=== PATIENT | female | born 1930 | race Two or more races ===

== ENCOUNTER 2017-02-02 09:36 | Inpatient (IN) | payer MEDICARE, MEDICAID ==
[~2017-02-02] VITALS: Ht 154.9 cm; Wt 88.5 kg
[~2017-02-02 09:36] MED LIST: BLOO-129 IN; CARI350T PO; HYDR-548 PO; INSU100V10 SQ
[2017-02-02 10:00] LABS: BASOPHILS % (AUTO) 0.5 % (0.0-2.0); EOSINOPHILS # (AUTO) 0.3 /CMM (0.0-0.7); EOSINOPHILS % (AUTO) 3.4 % (0.0-6.0); HEMATOCRIT 43 % (33-45); HEMOGLOBIN 13.7 g/dL (11.5-14.8); LYMPHOCYTES # (AUTO) 2.2 /CMM (0.8-4.8); LYMPHOCYTES % (AUTO) 24.9 % (20.0-44.0); MEAN CORPUSCULAR HEMOGLOBIN 28 PG (26.0-33.0); MEAN CORPUSCULAR HGB CONC 32 g/dl (31.0-36.0); MEAN CORPUSCULAR VOLUME 86 fL (82-100); MONOCYTES # (AUTO) 0.4 /CMM (0.1-1.30); MONOCYTES % (AUTO) 4.3 % (2.0-12.0); NEUTROPHILS # (AUTO) 5.9 /CMM (1.8-8.9); NEUTROPHILS % (AUTO) 66.9 % (43.0-81.0); PLATELET COUNT (AUTO) 215 /CMM (150-450); RED BLOOD CELL COUNT(AUTO) 4.97 MIL/uL (4.0-5.2); WHITE BLOOD COUNT (AUTO) 8.8 K/uL (4.3-11.0)
[2017-02-02] MEDS ORDERED: FURO20TA4 PO (10:00)
[2017-02-02] MEDS ORDERED: ASPI81TA2 PO (10:00)
[2017-02-02] MEDS ORDERED: ATOR40TA PO (10:00)
[2017-02-02] MEDS ORDERED: INSU100V7 SQ (10:00)
--- NOTE | 2017-02-02 10:00 | NUR ---
pt to ed room 03. L sided CP 05/07, non radiating x 1 week. a/a/o. side rails up. hob elevated. conencted to monitor. changed to gown. seen and evaluated by ed provider. Addendum: 02/02/17 at 1051 by RAJANLAN Amendment undone in EDM - 02/02/17 at [address] Espinoza paged [phone]
[2017-02-02 10:11] LABS: CALCIUM, SERUM 8.8 mg/dL (8.5-10.1); POTASSIUM 4.9 mmol/L (3.5-5.1)
[2017-02-02 10:15] LABS: INR 0.94 (0.87-1.13); PROTHROMBIN TIME 9.8 SECS (9.5-12.7)
[2017-02-02 10:18] LABS: TROPONIN I 0.044 ng/mL (0.00-0.056)
[2017-02-02] MEDS ORDERED: NITR0.4T6 SL (10:22)
[2017-02-02 10:23] LABS: ALBUMIN 3.2 g/dL (3.4-5.0); BILIRUBIN,DIRECT 0.1 mg/dL (0.0-0.2); BILIRUBIN,TOTAL 0.5 mg/dL (0.2-1.0); TOTAL PROTEIN, SERUM 7.3 g/dL (6.4-8.2)
--- NOTE | 2017-02-02 10:45 | NUR ---
Patient is resting comfortably in bed with eyes closed. Easily aroused. VSS
--- NOTE | 2017-02-02 10:53 | NUR ---
Dr Espinoza paged [phone]
--- NOTE | 2017-02-02 11:46 | NUR ---
Patient is resting comfortably in bed with eyes closed. Easily aroused. VSS
--- NOTE | 2017-02-02 11:53 | NUR ---
PAGED TOWER SUPERVISOR PANEL DR. OLIVER, TOWER SUPERVISOR FOR DR MENDEZ.
[2017-02-02] MEDS ORDERED: ASPIRIN 325 MG TABLET PO ONE (12:00)
[2017-02-02] MEDS ORDERED: NITROGLYCERIN PACKET 1 GM PACKET TD ONE (12:00)
[2017-02-02] MEDS ORDERED: NITROGLYCERIN PACKET 1 GM PACKET ONE (12:08)
[2017-02-02] MEDS ORDERED: ASPIRIN 325 MG TABLET ONE (12:08)
--- NOTE | 2017-02-02 12:18 | NUR ---
PATIENT ASSIGNED TO TELE 328-1 DX CHEST PAIN ADMITTING DR OLIVER
[2017-02-02] MEDS ORDERED: FUROSEMIDE 20 MG/2 ML VIAL ONE (12:25)
[2017-02-02] MEDS ORDERED: FUROSEMIDE 20 MG/2 ML VIAL IV ONE (12:30)
[2017-02-02] MEDS ORDERED: AMLODIPINE BESYLATE 5 MG TABLET ONE (12:56)
[2017-02-02] MEDS: AMLODIPINE BESYLATE 10 MG TABLET PO SCH (13:01)
--- NOTE | 2017-02-02 13:05 | NUR ---
Carly rodriguez in [place] - 02/02/17 at 1306 by ANÍBAL ACCU CHECK [id number]
[2017-02-02 14:00] VITALS: BP 187/77
--- NOTE | 2017-02-02 14:20 | NUR ---
ms rn received on bed, awake,alert,oriented x4,not in nay form of distress, respirations even and unlabored, no sob noted. came in w/ dx of chest pain/ hypertension, no sob noted, lungs are clear,abdomen soft,positive bowel sounds,denies pain at this time, will be admitted by dr. healy,all needs attended.
[2017-02-02] MEDS ORDERED: NITROGLYCERIN 0.4 MG/TAB BOTTLE SL PRN ×2 (15:30)
[2017-02-02] MEDS ORDERED: MORPHINE SULFATE INJ 2 MG/ML DISP.SYRIN IV PRN ×2 (15:30→16:00)
[2017-02-02] MEDS ORDERED: ONDANSETRON HCL/PF 4 MG/2 ML VIAL IVP PRN (15:30)
[2017-02-02] MEDS: ACETAMINOPHEN 325 MG TABLET PO PRN (15:52)
[2017-02-02] MEDS ORDERED: ASPIRIN 81 MG TAB.CHEW PO SCH (16:00)
[2017-02-02] MEDS: CARVEDILOL 6.25 MG TABLET PO SCH ×2 (16:01→21:41)
[2017-02-02] MEDS: LOSARTAN POTASSIUM 25 MG TABLET PO SCH (16:01)
[2017-02-02] MEDS: hydrALAZINE HCL 25 MG TABLET PO SCH ×2 (16:02→21:41)
[2017-02-02 16:04] VITALS: BP 144/75
--- NOTE | 2017-02-02 16:30 | NUR ---
ms cheyanne ordersmade and carried out, due meds given,tolerated well.
[2017-02-02] MEDS ORDERED: BLOOD SUGAR DIAGNOSTIC 1 EACH STRIP IN SCH (17:00)
[2017-02-02] MEDS ORDERED: INSULIN GLARGINE HUM REC ANLOG 25 UNIT SQ SCH (17:00)
--- NOTE | 2017-02-02 17:50 | NUR ---
ms edward bs - 390 -waiting for coverage order.called rx for insulin.
[2017-02-02] MEDS: BLOOD SUGAR DIAGNOSTIC 1 EACH STRIP IN SCH ×2 (18:05→21:40)
[2017-02-02] MEDS ORDERED: DEXTROSE 50%-WATER 50 ML DISP.SYRIN IV PRN (18:30)
--- NOTE | 2017-02-02 19:01 | NUR ---
ms rn on bed, all needs attended.
[2017-02-02] MEDS: INSULIN REGULAR, HUMAN 100 UNIT/ML 3 ML VIAL SQ PRN ×2 (19:16→21:46)
--- NOTE | 2017-02-02 19:30 | NUR ---
POULTRY HATCHERY MAN NOTE PATIENT AWAKE IN BED. NO RESPIRATORY DISTRESS OR CHEST PAIN AT THIS TIME. IV SITE INTACT, WITH NO REDNESS OR SWELLING NOTED AT SITE. BED LOCKED AND IN LOWEST POSITION. SIDE RAILS UP, CALL LIGHT WITHIN REACH. WILL CONTINUE TO MONITOR.
[2017-02-02 20:11] VITALS: BP 143/66
[2017-02-02] MEDS: ATORVASTATIN 40 MG TABLET PO SCH (21:39)
[2017-02-02] MEDS: INSULIN DETEMIR 100 UNIT/ML CARTRIDGE SQ SCH (21:45)
--- NOTE | 2017-02-02 21:59 | NUR ---
MOTOR VEHICLE LICENCE EXAMINER NOTE PATIENT IS TELE SB 53 AT THIS TIME. BLOOD SUGAR 360. 10 UNITS OF SLIDING SCALE INSULIN GIVEN, ALONG WITH LEVEMIR 25 UNITS. WILL ENDORSE TO VERONIKA MCINTOSH, FOR MIRELLA.
--- NOTE | 2017-02-02 22:19 | NUR ---
MANAGER INTERMEDIATE OPENING NOTES RECEIVED REPORT FROM NOAH MCINTOSH PATIENT IN BED IN STABLE CONDITION, IV SITE INTACT WITH S/S OF INFILTRATION. NO S/S OF DISTRESS NO SOB, NO CHEST PAIN. NO S/S PAIN, SAFE FREE ENVIRONMENT PROVIDED FREE OF CLUTTERS, WILL CONTINUE TO MONITOR, ON LOW BED TO ENSURE SAFETY, CALL LIGHT WITHIN REACH.
[2017-02-03] VITALS: BP_SYST 117; BP_SYST 133; BP_SYST 151; BP_DIAS 57; BP_DIAS 59; BP_DIAS 67
[2017-02-03 01:00] VITALS: BP 133/59
[2017-02-03 04:00] VITALS: BP_SYST 117; BP_SYST 133; BP_DIAS 57; BP_DIAS 59
[2017-02-03] MEDS: BLOOD SUGAR DIAGNOSTIC 1 EACH STRIP IN SCH ×4 (05:21→21:52)
[2017-02-03] MEDS: hydrALAZINE HCL 25 MG TABLET PO SCH ×3 (05:22→22:09)
[2017-02-03] MEDS: INSULIN REGULAR, HUMAN 100 UNIT/ML 3 ML VIAL SQ PRN ×4 (05:26→22:11)
--- NOTE | 2017-02-03 06:23 | NUR ---
SUPERVISOR SEWING DEPARTMENT CLOSING NOTES PATIENT COMFORTABLY ASLEEP AND EASILY AWAKEN, NO S/S OF HYPO/HYPERGLYCEMIA. IV SITE NO S/S OF INFILTRATED, PATIENT DENIES PAIN AT THIS TIME. 0/10 RESPIRATIONS EVEN AND UNLABORED. NO S/S OF ACUTE DISTRESS, NO SOB, NO COUGH, NO CONGESTION, SKIN WARM AND DRY TO TOUCH, AFEBRILE, ALL NURSING CARE NEEDS PROVIDED AND RENDERED, NEEDS ATTENDED AND ANTICIPATED, KEPT CLEAN AND DRY AND COMFORTABLE, BLADDER NOT DISTENDED, GOOD SKIN CARE PROVIDED. ABDOMEN SOFT AND NON TENDER. NO C/O OF CONSTIPATION. ALL DUE MEDS WAS GIVEN TOLERATED. FREQUENT VISUAL CHECK DONE FOR SAFETY EVERY 2 HOURS. SAFE HAZARD FREE ENVIRONMENT PROVIDED. CALL LIGHT WITHIN EASY TO REACH, ON LOW BED AT ALL TIMES TO ENSURE SAFETY, WILL ENDORSE TO THE NEXT SHIFT CONTINUE PLAN OF CARE. ATTACH TO TELE MONITOR. SHOWING SINUS BRADYCARDIA 59'S MD AWARE.
[2017-02-03 06:35] LABS: BASOPHILS % (AUTO) 0.5 % (0.0-2.0); EOSINOPHILS # (AUTO) 0.3 /CMM (0.0-0.7); EOSINOPHILS % (AUTO) 3.4 % (0.0-6.0); HEMATOCRIT 37 % (33-45); HEMOGLOBIN 12.4 g/dL (11.5-14.8); LYMPHOCYTES # (AUTO) 2.3 /CMM (0.8-4.8); LYMPHOCYTES % (AUTO) 26.7 % (20.0-44.0); MEAN CORPUSCULAR HEMOGLOBIN 29 PG (26.0-33.0); MEAN CORPUSCULAR HGB CONC 33 g/dl (31.0-36.0); MEAN CORPUSCULAR VOLUME 86 fL (82-100); MONOCYTES # (AUTO) 0.6 /CMM (0.1-1.30); NEUTROPHILS # (AUTO) 5.5 /CMM (1.8-8.9); NEUTROPHILS % (AUTO) 62.4 % (43.0-81.0); PLATELET COUNT (AUTO) 213 /CMM (150-450); RDW COEFFICIENT OF VARIATION 13.6 (11.5-15.0); RED BLOOD CELL COUNT(AUTO) 4.33 MIL/uL (4.0-5.2); WHITE BLOOD COUNT (AUTO) 8.8 K/uL (4.3-11.0)
[2017-02-03 06:51] LABS: CALCIUM, SERUM 8.5 mg/dL (8.5-10.1); CREATININE 1.1 mg/dL (0.6-1.3); MAGNESIUM 1.8 mg/dL (1.8-2.4); PHOSPHORUS 4.7 mg/dL (2.5-4.9)
[2017-02-03 07:04] VITALS: BP 136/60
--- NOTE | 2017-02-03 07:23 | NUR ---
RN AM NOTES RECEIVED PATIENT IN STABLE CONDITION, ALERT/ORIENTED X4, ASLEEP, BUT EASILY AROUSABLE. SLIGHT CONGESTION, WILL FOLLOW UP ON MEDICATIONS AND ADMINISTER ORDERED. NO COMPLAINTS OF PAIN OR SIGNS/SYMPTOMS OF DISTRESS. WILL CONTINUE TO MONITOR
[2017-02-03] MEDS: ASPIRIN 81 MG TAB.CHEW PO SCH (08:05)
[2017-02-03] MEDS: LOSARTAN POTASSIUM 25 MG TABLET PO SCH (08:06)
[2017-02-03] MEDS: AMLODIPINE BESYLATE 10 MG TABLET PO SCH (08:06)
[2017-02-03] MEDS: CARVEDILOL 6.25 MG TABLET PO SCH ×2 (08:07→21:44)
[2017-02-03] MEDS: INSULIN DETEMIR 100 UNIT/ML CARTRIDGE SQ SCH ×2 (08:11→21:51)
[2017-02-03] MEDS ORDERED: GUAIFENESIN/D-METHORPHAN HB 5 ML UDC PO PRN (09:30)
--- NOTE | 2017-02-03 10:36 | NUR ---
PT EVALUATED PATIENT AND IS RECOMMENDING CAREGIVER AND AT HOME PT IF SHE IS TO D/C TOMORROW. PT OBSERVED THAT SHE CAN ONLY AMBULATE 100 FT AND THAT SHE NEEDS ASSISTANCE IN ADDITION TO HER WALKER. WILL FORWARD TO CASE MANAGEMENT AND CONTINUE TO MONITOR.
--- NOTE | 2017-02-03 11:00 | NUR ---
PT EVALUATED PATIENT, PT AMBULATED 100 FEET ASSISTED WITH WALKER. PT RECOMMENDS ACTIVITY WITH ASSIST, EVEN WITH WALKER. SUGGESTS THAT PATIENT HAS A CAREGIVER AND AT HOME PT, PATIENT LIVES ALONE WITH HER DAUGHTER AND INDUSTRIAL TRACTOR DRIVER STOPPING BY TO HELP AND SON-IN-LAW HELPING WHEN DAUGHTER IS NOT AVAILABLE. FORWARDED TO CASE MANAGEMENT. WILL CONTINUE TO MONITOR.
--- NOTE | 2017-02-03 15:24 | NUR ---
NO COMPLAINTS OF CHEST PAIN OR SOB. PATIENT IN BED RESTING QUIETLY, BUT EASILY AROUSABLE. WILL CONTINUE TO MONITOR.
--- NOTE | 2017-02-03 15:48 | NUR ---
NO COMPLAINTS OF COUGH SINCE THIS AM DOSE OF ROBITUSSIN. COUGH PRODUCTIVE WITH WHITE, CLEAR MUCUS. LUNGS AND THROAT CLEAR, WITH NO SIGNS/SYMPTOMS OF IRRITATION. NO DISTRESS NOTED. WILL CONTINUE TO MONITOR.
[2017-02-03 16:00] VITALS: BP 111/56
--- NOTE | 2017-02-03 18:16 | NUR ---
RN PM NOTES PATIENT RESTING IN BED. ATE MOST OF DINNER, BUT SAYS SHE JUST FELT MORE FULL THAN USUAL. DENIES PAIN, SOB OR DISCOMFORT. NO COMPLAINTS OF CHEST PAIN OR HEART PALPITATIONS. FLUSHED PIV EACH PORT WITH 10 ML NS SALINE FLUSH FOR MAINTENANCE. PATIENT TOLERATED WELL. WILL ENDORSE TO NEXT SHIFT.
--- NOTE | 2017-02-03 19:30 | NUR ---
RN NOTES: RECEIVED PATIENT LYING ON BED,SHE CLAIMED SHE JUST HAD BM USING BED SIDE COMMODE;IV CANNULA INTACT LEFT HAND G#18 HEPLOCK,NO SIGN OF SOB , ON ROOM AIR,FALL, SAFETY AND ASPIRATION PRECAUTION OBSERVE, CALL LIGHT WITHIN REACH,BED LOW AND LOCKED.MENTIONED SHE HAD A SLIGHT HEADACHE,NON PHARMACOLOGIC INTERVENTION RENDERED.KEPT ON COMFORTABLE POSITION.
[2017-02-03] MEDS: ACETAMINOPHEN 325 MG TABLET PO PRN (19:49)
--- NOTE | 2017-02-03 19:53 | NUR ---
RN NOTES: PATIENT COMPLAINED OF HEADACHE UPON ENDORSEMENT 06/07 AND REQUEST FOR TYLENOL,GIVEN AT 1950,KEPT ON COMFORTABLE POSITION AND NON PHARMACOLOGIC INTERVENTION RENDERED, DIM LIGHT AND BACK RUB.
[2017-02-03 20:00] VITALS: BP 139/61
[2017-02-03] MEDS: ATORVASTATIN 40 MG TABLET PO SCH (21:54)
--- NOTE | 2017-02-03 22:00 | NUR ---
RN NOTES: BLOOD SUGAR-185, DUE INSULIN GIVEN PER SCALE,LEVEMIR SCHEDULED GIVEN, OFFERED SNACKS,BP-140/65 WI-62(MANUAL), DUE MEDICATION GIVEN, WILL CONTINUE TO MONITOR HYPER AND HYPOGLYCEMIA SIGNS AND SYMPTOMS.
--- NOTE | 2017-02-03 22:00 | NUR ---
RN NOTES: LUNESTA NOT GIVEN NOT AVAILABLE IN [facility].
--- NOTE | 2017-02-04 02:37 | NUR ---
RN NOTES: HAD BM USING BED SIDE COMMODE,SPONGE BATH RENDERED, CLEAN AND CHANGE,PATIENT CLAIMED SHE FEEL COMFORTABLE.CALL LIGHT WITH IN REACH.
[2017-02-04] MEDS: hydrALAZINE HCL 25 MG TABLET PO SCH ×2 (05:00→12:35)
--- NOTE | 2017-02-04 05:20 | NUR ---
RN NOTES: 5AM DOSE OF APRESOLINE NOT GIVEN, BP-114/55 KY-54,PATIENT ASYMPTOMATIC, NO COMPLAINTS OF DIZZINESS OR CHEST DISCOMFORT, LYING COMFORTABLY IN BED,ALERT AND COHERENT.CALL LIGHT WITHIN REACH.
[2017-02-04] MEDS: BLOOD SUGAR DIAGNOSTIC 1 EACH STRIP IN SCH ×2 (06:03→12:25)
[2017-02-04] MEDS: INSULIN REGULAR, HUMAN 100 UNIT/ML 3 ML VIAL SQ PRN ×2 (06:05→12:34)
--- NOTE | 2017-02-04 06:06 | NUR ---
RN NOTES: BLOOD SUGAR CHECK-132, INSULIN GIVEN PER SCALE,ASLEEP AT SHORT INTERVALS, WILL CONTINUE TO MONITOR FOR SIGN OF HYPER/HYPOGLYCEMIA.CALL LIGHT WITHIN REACH.
--- NOTE | 2017-02-04 06:38 | NUR ---
RN NOTES: ABLE TO SLEEP AND REST IN THE NIGHT, NEEDS ATTENDED, NO COMPLAINTS OF PAIN,NOT ANY SIGN OF RESPIRATORY DISTRESS NOTED,BED LOW AND LOCKED, CALL LIGHT WITHIN REACH.ENDORSED TO MORNING SHIFT FOR CONTINUITY OF CARE.
[2017-02-04 08:00] VITALS: BP 127/60
--- NOTE | 2017-02-04 08:16 | NUR ---
RN AM NOTES RECEIVED PATIENT IN BED, EASILY AROUSABLE, ALERT /ORIENTED X4. NO C/O PAIN, BUT STILL WITH GENERALIZED WEAKNESS. BLOOD SUGAR 132 WITH 2 UNITS AT 0600, NO OTHER COVERAGE GIVEN. AWAITING BREAKFAST. WILL CONTINUE TO MONITOR.
[2017-02-04] MEDS: ASPIRIN 81 MG TAB.CHEW PO SCH (08:56)
[2017-02-04] MEDS: CARVEDILOL 6.25 MG TABLET PO SCH (08:57)
[2017-02-04] MEDS: AMLODIPINE BESYLATE 10 MG TABLET PO SCH (08:57)
[2017-02-04] MEDS: LOSARTAN POTASSIUM 25 MG TABLET PO SCH (08:58)
[2017-02-04] MEDS: INSULIN DETEMIR 100 UNIT/ML CARTRIDGE SQ SCH (09:04)
[2017-02-04 12:35] VITALS: BP 127/60
--- NOTE | 2017-02-04 12:40 | NUR ---
BLOOD YXHKI=093 TAKEN POSTPARANDIAL, COVERED WITH 10 UNITS OF REGULAR INSULIN PER SLIDING SCALE. AWARE. PT. CLEARED TO DISCHARGE.
--- NOTE | 2017-02-04 15:03 | NUR ---
PATIENT AT BEDSIDE WAITING FOR SON-IN-LAW TO PICK HER UP. COMING FROM [place]. PATIENT DRESSED AND READY WITH PERSONAL BELONGINGS, AND DISCHARGE PAPERWORK, INCLUDING PRESCRIPTION. RX FAXED TO [facility] AND HAS BEEN FILLED PER PHARMACY.
--- NOTE | 2017-02-04 15:50 | NUR ---
CONTRACTOR BUYER NOTES PATIENT LEFT FACILITY IN WHEELCHAIR ACCOMPANIED BY SON AND MARKETING ANALYTICS SPECIALIST TO PRIVATE CAR. IN STABLE CONDITION. DISCHARGE PACKET AND PAPERWORK GIVEN TO PATIENT. RX FILLED AT [facility] REQUESTED BY PATIENT. ALL PERSONAL BELONGINGS GIVEN TO PATIENT. PATIENT LEFT FACILITY SAFELY.
== END 2017-02-04 15:45 | disposition home or self-care (01) | DRG 305 ==
LOC: ER 09:37 → TELE 12:28 → MED 02-03 11:22
PROVIDERS: ADMIT Internal Medicine; ATTEND Internal Medicine
DX: I16.0 Hypertensive urgency (principal); I25.110 Atherosclerotic heart disease of native coronary artery with unstable angina pectoris; I50.32 Chronic diastolic (congestive) heart failure; I11.0 Hypertensive heart disease with heart failure; E66.9 Obesity, unspecified; E78.5 Hyperlipidemia, unspecified; E11.9 Type 2 diabetes mellitus without complications; Z87.891 Personal history of nicotine dependence; Z91.19 Patient's noncompliance with other medical treatment and regimen
CPT/HCPCS: 36415; 71010-TC; 80048-TC; 80076-TC; 82962-TC; 83735-TC; 83880; 84100-TC; 84484-TC; 85025-TC; 85730-TC; 87081-TC; 93307-TC; 97001-TC; A4606; J1815; J1940; Z7610

== ENCOUNTER 2017-05-27 14:24 | Emergency (ER) | payer MEDICARE, MEDICAID ==
[~2017-05-27] VITALS: Ht 152.4 cm; Wt 98.4 kg
[~2017-05-27 14:24] MED LIST changes: +ASPI81TA2 PO; +ATOR40TA PO; -CARI350T PO; +FURO20TA4 PO; -HYDR-548 PO; -INSU100V10 SQ; +INSU100V7 SQ; +NITR0.4T6 SL
--- NOTE | 2017-05-27 14:24 | NUR ---
UPPER BACK AND CHEST PAIN SINCE YESTERDAY. NAD NOTED. PT AAO X4, AMB WITH STEADY GAIT. RR EVEN AND UNLABORED. EKJARRELL AT BEDSIDE FOR EVAL. PT PLACED ON MONITOR.
[2017-05-27 14:53] LABS: BASOPHILS # (AUTO) 0.1 /CMM (0.0-0.2); BASOPHILS % (AUTO) 1.1 % (0.0-2.0); EOSINOPHILS # (AUTO) 0.4 /CMM (0.0-0.7); EOSINOPHILS % (AUTO) 4.8 % (0.0-6.0); HEMATOCRIT 37 % (33-45); HEMOGLOBIN 12.1 g/dL (11.5-14.8); LYMPHOCYTES % (AUTO) 21.8 % (20.0-44.0); MEAN CORPUSCULAR HEMOGLOBIN 29 PG (26.0-33.0); MEAN CORPUSCULAR HGB CONC 33 g/dl (31.0-36.0); MEAN CORPUSCULAR VOLUME 88 fL (82-100); MONOCYTES # (AUTO) 0.5 /CMM (0.1-1.30); MONOCYTES % (AUTO) 5.7 % (2.0-12.0); NEUTROPHILS % (AUTO) 66.6 % (43.0-81.0); PLATELET COUNT (AUTO) 257 /CMM (150-450); RDW COEFFICIENT OF VARIATION 13.9 (11.5-15.0); RED BLOOD CELL COUNT(AUTO) 4.17 MIL/uL (4.0-5.2)
[2017-05-27] MEDS ORDERED: KETOROLAC TROMETHAMINE INJ 30 MG/ML VIAL IV ONE (15:00)
[2017-05-27] MEDS ORDERED: KETOROLAC TROMETHAMINE 15 MG/ML VIAL ONE (15:02)
[2017-05-27 15:03] LABS: CALCIUM, SERUM 8.2 mg/dL (8.5-10.1); CARBON DIOXIDE 33 mmol/L (21-32); CHLORIDE 106 mmol/L (98-107); CREATININE 1.3 mg/dL (0.6-1.3); GLUCOSE 126 mg/dL (74-106); POTASSIUM 4.6 mmol/L (3.5-5.1); SODIUM SERUM 143 mmol/L (136-145); UREA NITROGEN, BLOOD 27 mg/dL (7-18)
[2017-05-27 15:06] LABS: INR 0.95 (0.87-1.13); PROTHROMBIN TIME 9.9 SECS (9.5-12.7)
[2017-05-27 15:12] LABS: TROPONIN I 0.036 ng/mL (0.00-0.056)
[2017-05-27 15:43] VITALS: BP 134/68
== END 2017-05-27 15:44 | disposition home or self-care (01) ==
LOC: ER 14:27
DX: M54.6 Pain in thoracic spine (principal); E11.9 Type 2 diabetes mellitus without complications; E78.00 Pure hypercholesterolemia, unspecified; G89.29 Other chronic pain; I11.0 Hypertensive heart disease with heart failure; I25.2 Old myocardial infarction; I50.9 Heart failure, unspecified; J44.9 Chronic obstructive pulmonary disease, unspecified; Z79.4 Long term (current) use of insulin; Z79.82 Long term (current) use of aspirin; Z99.81 Dependence on supplemental oxygen; Z88.5 Allergy status to narcotic agent; Z88.1 Allergy status to other antibiotic agents
CPT/HCPCS: 36415; 71010; 80048; 84484; 85025; 85730; 93005; 96374; 99285; A4606 ×2; J1885; Z7610

== ENCOUNTER 2017-06-12 18:29 | Inpatient (IN) | payer MEDICARE, MEDICAID ==
[2017-06-12] MEDS ORDERED: FUROSEMIDE 20 MG/2 ML VIAL ONE (20:08)
[2017-06-12] MEDS ORDERED: INSU100V7 SQ (20:27)
[2017-06-12] MEDS ORDERED: LOSA25TA13 PO (20:27)
[2017-06-12] MEDS ORDERED: FAMO20TA8 PO (20:27)
[2017-06-12] MEDS ORDERED: LINA5TAB PO (20:27)
[2017-06-12] MEDS ORDERED: AMLO10TA2 PO (20:28)
[2017-06-12] MEDS ORDERED: FOLI1TAB16 PO (20:28)
[2017-06-12] MEDS ORDERED: HYDR-548 PO (20:28)
[2017-06-12] MEDS ORDERED: FUROSEMIDE 40 MG/4 ML VIAL IV ONE (20:30)
[2017-06-12] MEDS ORDERED: ACETAMINOPHEN 325 MG TABLET ONE ×2 (21:14→22:21)
[2017-06-12] MEDS ORDERED: ACETAMINOPHEN 650 MG/20.3 ML UDC NG ONE (21:30)
[2017-06-12] MEDS ORDERED: DEXTROSE 50%-WATER 50 ML DISP.SYRIN IV PRN (21:30)
[2017-06-12] MEDS ORDERED: NITROGLYCERIN PACKET 1 GM PACKET ONE (22:21)
[2017-06-12] MEDS ORDERED: ENOXAPARIN SODIUM 40 MG/0.4 ML DISP.SYRIN SQ ONE (22:21)
[2017-06-12] MEDS ORDERED: ACETAMINOPHEN 325 MG TABLET PO PRN (22:30)
[2017-06-12] MEDS ORDERED: ENOXAPARIN SODIUM 40 MG/0.4 ML DISP.SYRIN SQ SCH (22:30)
[2017-06-12] MEDS: BLOOD SUGAR DIAGNOSTIC 1 EACH STRIP IN SCH (22:33)
[2017-06-12] MEDS: NITROGLYCERIN PACKET 1 GM PACKET TOP SCH (22:40)
[2017-06-13] MEDS ORDERED: NITROGLYCERIN PACKET 1 GM PACKET ONE (06:30)
[2017-06-13] MEDS: NITROGLYCERIN PACKET 1 GM PACKET TOP SCH (06:39)
[2017-06-13] MEDS: BLOOD SUGAR DIAGNOSTIC 1 EACH STRIP IN SCH ×4 (06:50→21:01)
[2017-06-13] MEDS ORDERED: FUROSEMIDE 40 MG/4 ML VIAL IV SCH (09:00)
[2017-06-13] MEDS: ASPIRIN 81 MG TAB.CHEW PO SCH (09:04)
[2017-06-13] MEDS: PANTOPRAZOLE 40 MG TABLET.DR PO SCH (09:04)
[2017-06-13] MEDS: HYDROCODONE/APAP 10/325MG 1 EA TABLET PO PRN ×3 (09:18→23:30)
[2017-06-13] MEDS ORDERED: NITROGLYCERIN 30 GM TUBE TP SCH (12:00)
[2017-06-13] MEDS: INSULIN REGULAR, HUMAN 100 UNIT/ML 3 ML VIAL SQ PRN ×3 (12:18→21:17)
[2017-06-13] MEDS: AMLODIPINE BESYLATE 5 MG TABLET PO SCH (12:54)
[2017-06-13] MEDS: ONDANSETRON HCL/PF 4 MG/2 ML VIAL IV PRN (17:26)
[2017-06-13] MEDS ORDERED: diphenhydrAMINE HCL ELIX 25 MG/10 ML UDC PO PRN (18:30)
[2017-06-13] MEDS: ENOXAPARIN SODIUM 40 MG/0.4 ML DISP.SYRIN SQ SCH (20:55)
[2017-06-13] MEDS: HYDROCORTISONE 1% CREAM 28.35 GM TUBE TP SCH (20:55)
[2017-06-14] MEDS: BLOOD SUGAR DIAGNOSTIC 1 EACH STRIP IN SCH ×4 (06:33→21:22)
[2017-06-14] MEDS: INSULIN REGULAR, HUMAN 100 UNIT/ML 3 ML VIAL SQ PRN ×4 (06:34→21:28)
[2017-06-14] MEDS: ASPIRIN 81 MG TAB.CHEW PO SCH (08:28)
[2017-06-14] MEDS: FUROSEMIDE 20 MG TABLET PO SCH (08:28)
[2017-06-14] MEDS: PANTOPRAZOLE 40 MG TABLET.DR PO SCH (08:28)
[2017-06-14] MEDS: HYDROCORTISONE 1% CREAM 28.35 GM TUBE TP SCH ×2 (08:29→17:23)
[2017-06-14] MEDS: AMLODIPINE BESYLATE 5 MG TABLET PO SCH (08:29)
[2017-06-14] MEDS: HYDROCODONE/APAP 10/325MG 1 EA TABLET PO PRN ×2 (09:01→21:35)
[2017-06-14] MEDS: ONDANSETRON HCL/PF 4 MG/2 ML VIAL IV PRN (11:08)
[2017-06-14] MEDS: ENOXAPARIN SODIUM 40 MG/0.4 ML DISP.SYRIN SQ SCH (21:23)
[2017-06-15] MEDS: HYDROCODONE/APAP 10/325MG 1 EA TABLET PO PRN ×2 (06:02→12:07)
[2017-06-15] MEDS: BLOOD SUGAR DIAGNOSTIC 1 EACH STRIP IN SCH ×2 (06:02→12:05)
[2017-06-15] MEDS: INSULIN REGULAR, HUMAN 100 UNIT/ML 3 ML VIAL SQ PRN ×2 (06:44→12:07)
[2017-06-15] MEDS: FUROSEMIDE 20 MG TABLET PO SCH (08:09)
[2017-06-15] MEDS: PANTOPRAZOLE 40 MG TABLET.DR PO SCH (08:09)
[2017-06-15] MEDS: ASPIRIN 81 MG TAB.CHEW PO SCH (08:10)
[2017-06-15] MEDS: HYDROCORTISONE 1% CREAM 28.35 GM TUBE TP SCH (08:10)
[2017-06-15] MEDS: AMLODIPINE BESYLATE 5 MG TABLET PO SCH (08:10)
== END 2017-06-15 14:00 | disposition home or self-care (01) | DRG 291 ==
DX: I13.0 Hypertensive heart and chronic kidney disease with heart failure and stage 1 through stage 4 chronic kidney disease, or unspecified chronic kidney disease (principal); I50.43 Acute on chronic combined systolic (congestive) and diastolic (congestive) heart failure; E11.22 Type 2 diabetes mellitus with diabetic chronic kidney disease; N39.0 Urinary tract infection, site not specified; E66.01 Morbid (severe) obesity due to excess calories; B96.1 Klebsiella pneumoniae [K. pneumoniae] as the cause of diseases classified elsewhere; E11.9 Type 2 diabetes mellitus without complications; J98.11 Atelectasis; G89.29 Other chronic pain; I25.10 Atherosclerotic heart disease of native coronary artery without angina pectoris; Z68.34 Body mass index [BMI] 34.0-34.9, adult; Z87.891 Personal history of nicotine dependence; R42 Dizziness and giddiness; R07.89 Other chest pain; I35.0 Nonrheumatic aortic (valve) stenosis; M54.5 Low back pain; N18.2 Chronic kidney disease, stage 2 (mild)

== ENCOUNTER 2017-09-30 00:35 | Inpatient (IN) | payer MEDICARE, MEDICAID ==
[~2017-09-30] VITALS: Ht 154.9 cm; Wt 101.6 kg
[~2017-09-30 00:35] MED LIST changes: +AMLO10TA2 PO; +ASPI-1169 PO; -ASPI81TA2 PO; -ATOR40TA PO; +FAMO20TA8 PO; +FOLI1TAB16 PO; +HYDR-548 PO; +LINA5TAB PO; +LOSA25TA13 PO; +NITR0.4T48 SL; -NITR0.4T6 SL
--- NOTE | 2017-09-30 00:37 | NUR ---
PT TO ER BED 6 VIA WC, PT BIBSELF C/O CP RADIATING TO THE LEFT ARM WITH SOB X 1 HOUR. HX OF HEART ATTACK. PT PLACED IN GOWN AND ON DIRECTOR [place]. VSS/RESP EVEN UNLABORED/NAD NOTED/SKIN WARM AND DRY/DENIES N-V-D/AOX4. MD AT BEDSIDE. EMT AT BEDSIDE TO OBTAIN EKG.
[2017-09-30] MEDS ORDERED: NITROGLYCERIN 0.4 MG/TAB BOTTLE ONE (00:50)
[2017-09-30] MEDS ORDERED: ASPIRIN 325 MG TABLET ONE (00:51)
[2017-09-30] MEDS ORDERED: NITROGLYCERIN 0.4 MG/TAB BOTTLE SL ONE (01:00)
[2017-09-30] MEDS ORDERED: ASPIRIN 325 MG TABLET PO ONE (01:00)
--- NOTE | 2017-09-30 01:05 | NUR ---
18G IV TO R FA USING ASEPTIC TECH, BLOOD OBTAINED AND HANDED OVER TO THE LAB AT THE BEDSIDE. IV FLUSHES EASILY WITH NS.
[2017-09-30] MEDS ORDERED: CALC-838 PO (01:08)
[2017-09-30] MEDS ORDERED: LOPE2CAP PO (01:08)
--- NOTE | 2017-09-30 01:12 | NUR ---
XRAY AT BEDSIDE.
[2017-09-30 01:13] LABS: BASOPHILS # (AUTO) 0.1 /CMM (0.0-0.2); BASOPHILS % (AUTO) 0.5 % (0.0-2.0); EOSINOPHILS # (AUTO) 0.4 /CMM (0.0-0.7); EOSINOPHILS % (AUTO) 3.5 % (0.0-6.0); HEMATOCRIT 37 % (33-45); HEMOGLOBIN 11.8 g/dL (11.5-14.8); LYMPHOCYTES # (AUTO) 2.6 /CMM (0.8-4.8); LYMPHOCYTES % (AUTO) 24.7 % (20.0-44.0); MEAN CORPUSCULAR HEMOGLOBIN 28 PG (26.0-33.0); MEAN CORPUSCULAR HGB CONC 32 g/dl (31.0-36.0); MEAN CORPUSCULAR VOLUME 86 fL (82-100); MONOCYTES # (AUTO) 0.6 /CMM (0.1-1.30); MONOCYTES % (AUTO) 5.6 % (2.0-12.0); NEUTROPHILS # (AUTO) 6.9 /CMM (1.8-8.9); NEUTROPHILS % (AUTO) 65.7 % (43.0-81.0); PLATELET COUNT (AUTO) 267 /CMM (150-450); RED BLOOD CELL COUNT(AUTO) 4.27 MIL/uL (4.0-5.2); WHITE BLOOD COUNT (AUTO) 10.5 K/uL (4.3-11.0)
[2017-09-30 01:21] LABS: CALCIUM, SERUM 9.1 mg/dL (8.5-10.1); CARBON DIOXIDE 31 mmol/L (21-32); CHLORIDE 108 mmol/L (98-107); CREATININE 1.2 mg/dL (0.6-1.3); GLUCOSE 137 mg/dL (74-106); POTASSIUM 4.5 mmol/L (3.5-5.1); SODIUM SERUM 145 mmol/L (136-145); UREA NITROGEN, BLOOD 27 mg/dL (7-18)
[2017-09-30 01:24] LABS: INR 0.9 (0.87-1.13); PROTHROMBIN TIME 9.4 SECS (9.5-12.7)
[2017-09-30 01:29] LABS: TROPONIN I 0.026 ng/mL (0.00-0.056)
[2017-09-30 01:34] LABS: B-TYPE NATRIURETIC PEPTIDE 986 PG/ML (0-125)
--- NOTE | 2017-09-30 02:21 | NUR ---
PT ASSIGNED TO [facility] 308-1
--- NOTE | 2017-09-30 02:42 | NUR ---
REPORT GIVEN TO MARITZA FOR MIRELLA. PT ADMIT TO TELE 308-1.
--- NOTE | 2017-09-30 03:06 | NUR ---
SENIOR GENETIC COUNSELOR NOTES RECEIVED PT FROM [facility]IA [facility] AT 0306 ACLS PROTOCOL. A/O X 4, ATTACH TO TELE MONITOR. PT IN STABLE CONDITION, ON 2LPM VIA CA 02 SAT AT 98% NO S/S OF DISTRESS. NO COMPLAINS OF PAIN AT THIS TIME. SAFETY MEASURES ARE IN PLACE, CALL LIGHT IS IN REACH. WILL CONTINUE TO MONITOR. HEAD TO TOE SKIN ASSESSMENT IS DONE, SKIN IS INTACT.
[2017-09-30 03:10] VITALS: BP 150/59
--- NOTE | 2017-09-30 03:18 | NUR ---
PT TRANSPORTED VIA STRETCHER TO [facility] [id number] WITH RN, ACLS PROTOCOL.
[2017-09-30 03:52] VITALS: BP 150/59
[2017-09-30] MEDS ORDERED: HYDROMORPHONE 1 MG/1 ML DISP.SYRIN IV PRN (04:00)
[2017-09-30] MEDS ORDERED: ONDANSETRON HCL/PF 4 MG/2 ML VIAL IV PRN (04:00)
[2017-09-30] MEDS ORDERED: DEXTROSE 50%-WATER 50 ML DISP.SYRIN IV PRN (04:00)
[2017-09-30] MEDS ORDERED: NITROGLYCERIN PACKET 1 GM PACKET ONE (05:45)
[2017-09-30] MEDS ORDERED: ENOXAPARIN SODIUM 40 MG/0.4 ML DISP.SYRIN SQ ONE (05:46)
[2017-09-30] MEDS ORDERED: ENOXAPARIN SODIUM 40 MG/0.4 ML DISP.SYRIN SQ SCH (06:00)
[2017-09-30] MEDS ORDERED: NITROGLYCERIN PACKET 1 GM PACKET TOP SCH (06:00)
[2017-09-30] MEDS: BLOOD SUGAR DIAGNOSTIC 1 EACH STRIP IN SCH ×4 (06:07→21:39)
--- NOTE | 2017-09-30 06:18 | NUR ---
MANAGER USER EXPERIENCE CLOSING NOTES IN BED ASLEEP AND EASILY AWAKEN, HOB ELEVATED, ON 2LPM VIA NC 02 SAT 97% RESPIRATIONS EVEN AND UNLABORED. NO COMPLAINS OF CHEST PAIN, AFEBRILE, IN STABLE CONDITION. NOT IN S/S DISTRESS. ALL NURSING CARE RENDERED. NEEDS ATTENDED AND ANTICIPATED, KEPT CLEAN AND DRY AND COMFORTABLE, NO COMPLAINS OF PAIN AT THIS TIME. GOOD SKIN CARE PROVIDED. FREQUENT VISUAL CHECK DONE FOR SAFETY EVERY 2 HOURS. ON LOW BED AT ALL TIMES TO ENSURE SAFETY. SAFE HAZARD FREE ENVIRONMENT PROVIDED. CALL LIGHT WITHIN EASY TO REACH. WILL ENDORSE NEXT SHIFT CONTINUITY OF CARE. ATTACH TO TELE MONITOR, SR 67'S.
[2017-09-30] MEDS ORDERED: FENTANYL PF 100MCG/2ML AMPUL IV PRN (07:00)
[2017-09-30] MEDS: INSULIN REGULAR, HUMAN 100 UNIT/ML 3 ML VIAL SQ PRN ×4 (07:02→22:09)
--- NOTE | 2017-09-30 07:05 | NUR ---
DICTAPHONE TECHNICIAN OPENING NOTES RECEIVED PT FROM NIGHTSHIFT NURSE IN STABLE CONDITION. PT IS A/O X4/ NO SOB OR SIGNS OF DISTRESS NOTED. BREATHING IS EVEN AND UNLABORED. PT IS ON 2L VIA NC AND SATING WELL. SHE DENIES ANY CHEST PAIN AT THIS TIME. PT IS SR ON THE TELE MONITOR WITH A HR OF 63. IV NOTED ON RIGHT FA 18G HL. IV IS PATENT TO NS FLUSH AND INTACT. NO REDNESS OR SIGNS OF INFILTRATION NOTED. BED IN LOW LOCKED POSITION, SIDE RAILS UP X2, CALL LIGHT WITHIN REACH. WILL CONTINUE TO MONITOR.
[2017-09-30] MEDS ORDERED: NITROGLYCERIN 0.4 MG/TAB BOTTLE SL PRN (07:30)
[2017-09-30 07:35] LABS: BASOPHILS % (AUTO) 0.4 % (0.0-2.0); EOSINOPHILS # (AUTO) 0.2 /CMM (0.0-0.7); EOSINOPHILS % (AUTO) 2.3 % (0.0-6.0); HEMATOCRIT 38 % (33-45); HEMOGLOBIN 12.1 g/dL (11.5-14.8); LYMPHOCYTES # (AUTO) 1.7 /CMM (0.8-4.8); LYMPHOCYTES % (AUTO) 17.5 % (20.0-44.0); MEAN CORPUSCULAR HEMOGLOBIN 28 PG (26.0-33.0); MEAN CORPUSCULAR HGB CONC 32 g/dl (31.0-36.0); MEAN CORPUSCULAR VOLUME 88 fL (82-100); MONOCYTES # (AUTO) 0.4 /CMM (0.1-1.30); MONOCYTES % (AUTO) 4.7 % (2.0-12.0); NEUTROPHILS # (AUTO) 7.1 /CMM (1.8-8.9); NEUTROPHILS % (AUTO) 75.1 % (43.0-81.0); PLATELET COUNT (AUTO) 235 /CMM (150-450); RDW COEFFICIENT OF VARIATION 14.1 (11.5-15.0); RED BLOOD CELL COUNT(AUTO) 4.32 MIL/uL (4.0-5.2); WHITE BLOOD COUNT (AUTO) 9.4 K/uL (4.3-11.0)
[2017-09-30 07:48] LABS: CALCIUM, SERUM 8.6 mg/dL (8.5-10.1); CARBON DIOXIDE 29 mmol/L (21-32); CHLORIDE 105 mmol/L (98-107); CREATININE 1.3 mg/dL (0.6-1.3); GLUCOSE 187 mg/dL (74-106); MAGNESIUM 2.2 mg/dL (1.8-2.4); POTASSIUM 4.9 mmol/L (3.5-5.1); SODIUM SERUM 141 mmol/L (136-145); UREA NITROGEN, BLOOD 28 mg/dL (7-18)
[2017-09-30 07:55] LABS: CHOLESTEROL 228 mg/dL (<200); HDL CHOLESTEROL 46 mg/dL (40-60); LDL 144 mg/dL (0-99); TRIGLYCERIDES 150 mg/dL (30-150)
[2017-09-30 07:58] LABS: TROPONIN I 0.026 ng/mL (0.00-0.056)
[2017-09-30 08:00] VITALS: BP 147/70
[2017-09-30] MEDS ORDERED: BLOOD SUGAR DIAGNOSTIC 1 EACH STRIP IN SCH (09:00)
[2017-09-30] MEDS ORDERED: ASPIRIN 81 MG TAB.CHEW PO SCH ×2 (09:00)
[2017-09-30] MEDS: ATORVASTATIN 10 MG TABLET PO SCH (09:54)
[2017-09-30] MEDS: FUROSEMIDE 20 MG TABLET PO SCH (09:54)
[2017-09-30] MEDS: LOSARTAN POTASSIUM 25 MG TABLET PO SCH (09:55)
[2017-09-30] MEDS: AMLODIPINE BESYLATE 10 MG TABLET PO SCH (09:55)
[2017-09-30] MEDS: LINAGLIPTIN 5 MG TABLET PO SCH (09:56)
[2017-09-30] MEDS: ASPIRIN 81 MG TAB.CHEW PO SCH (09:57)
[2017-09-30] MEDS: PANTOPRAZOLE 40 MG TABLET.DR PO SCH (09:57)
[2017-09-30] MEDS: FAMOTIDINE (20 MG) 20 MG TABLET PO SCH (09:57)
[2017-09-30] MEDS: FOLIC ACID 1 MG TABLET PO SCH (09:58)
[2017-09-30] MEDS: CALCIUM CARB 600MG /VIT D 1 EACH TABLET PO SCH (09:58)
[2017-09-30] MEDS: ACETAMINOPHEN 325 MG TABLET PO PRN (10:08)
[2017-09-30] MEDS: NITROGLYCERIN 30 GM TUBE TP SCH ×2 (13:12→17:28)
[2017-09-30 16:00] VITALS: BP 115/52
--- NOTE | 2017-09-30 18:32 | NUR ---
MS RN CLOSING NOTES PT REMAINS IN STABLE CONDITION. NO COMPLAINTS OF CHEST PAIN DURING SHIFT, ALL NEEDS WERE MET AND ORDERS CARRIED OUT ACCORDINGLY. ALL DUE MEDS GIVEN. WILL ENDORSE TO NIGHTSHIFT NURSE FOR MIRELLA
[2017-09-30 20:00] VITALS: BP 133/54
--- NOTE | 2017-09-30 21:20 | NUR ---
lying in bed Hob up o2 @ 2l n/c denies of CP, Sob , Dizziness, faintness or diaphoresis. On Med Surg status. A/)x 4 18 ga S/l to RFA intact. accu check 137 given 2 units Humlin and 25 Units of Levimir Sq. Gave pt hs snack. resting comfortably at this time.
[2017-09-30] MEDS: DOXAZOSIN MESYLATE (1 MG) 1 MG TABLET PO SCH (21:47)
[2017-09-30] MEDS: INSULIN DETEMIR 100 UNIT/ML CARTRIDGE SQ SCH (21:52)
[2017-10-01] MEDS: NITROGLYCERIN 30 GM TUBE TP SCH ×4 (06:26→17:22)
[2017-10-01] MEDS: PANTOPRAZOLE 40 MG TABLET.DR PO SCH (06:44)
[2017-10-01] MEDS: BLOOD SUGAR DIAGNOSTIC 1 EACH STRIP IN SCH ×4 (06:44→22:00)
--- NOTE | 2017-10-01 07:05 | NUR ---
MS RN OPENING NOTES RECEIVED PT FROM NIGHTSHIFT NURSE IN STABLE CONDITION. PT IS A/O X4 NO SOB OR SIGNS OF DISTRESS NOTED. BREATHING IS EVEN AND UNLABORED. PT IS ON 2L VIA NC AND SATING WELL. SHE DENIES ANY CHEST PAIN AT THIS TIME. IV NOTED ON RIGHT FA 18G HL. IV IS PATENT TO NS FLUSH AND INTACT. NO REDNESS OR SIGNS OF INFILTRATION NOTED. BED IN LOW LOCKED POSITION, SIDE RAILS UP X2, CALL LIGHT WITHIN REACH. WILL CONTINUE TO MONITOR.
[2017-10-01 08:00] VITALS: BP 126/49
[2017-10-01] MEDS ORDERED: FUROSEMIDE 20 MG/2 ML VIAL IV ONE (09:00)
[2017-10-01] MEDS: AMLODIPINE BESYLATE 10 MG TABLET PO SCH (09:00)
[2017-10-01] MEDS: LOSARTAN POTASSIUM 25 MG TABLET PO SCH (09:00)
[2017-10-01] MEDS: LINAGLIPTIN 5 MG TABLET PO SCH (09:42)
[2017-10-01] MEDS: FUROSEMIDE 20 MG TABLET PO SCH (09:42)
[2017-10-01] MEDS: ASPIRIN 81 MG TAB.CHEW PO SCH (09:43)
[2017-10-01] MEDS: ATORVASTATIN 10 MG TABLET PO SCH (09:43)
[2017-10-01] MEDS: FOLIC ACID 1 MG TABLET PO SCH (09:43)
[2017-10-01] MEDS: CALCIUM CARB 600MG /VIT D 1 EACH TABLET PO SCH (09:43)
[2017-10-01] MEDS: FAMOTIDINE (20 MG) 20 MG TABLET PO SCH (09:43)
[2017-10-01] MEDS: ENOXAPARIN SODIUM 40 MG/0.4 ML DISP.SYRIN SQ SCH (09:49)
[2017-10-01] MEDS: INSULIN REGULAR, HUMAN 100 UNIT/ML 3 ML VIAL SQ PRN ×3 (12:04→22:08)
[2017-10-01] MEDS: CODEINE/PROMETHAZINE HCL 5 ML UDC PO PRN ×2 (15:46→22:00)
--- NOTE | 2017-10-01 15:47 | NUR ---
MS RN NOTES DR. WOLF'S OFFICE WAS CONTACTED TO INFORM HIM THAT THE PT IS REFUSING THE SCHEDULED STRESS TEST FOR TOMORROW MORNING. DAIANA FROM [facility] WAS ALSO MADE AWARE.
[2017-10-01 16:00] VITALS: BP 127/57
--- NOTE | 2017-10-01 19:30 | NUR ---
MS RN OPENING NOTES RECEIVED PT IN STABLE CONDITION. PT IS A/O X4 NO SOB OR SIGNS OF DISTRESS NOTED. BREATHING IS EVEN AND UNLABORED. PT IS ON 2L VIA NC AND SATING WELL. SHE DENIES ANY CHEST PAIN AT THIS TIME. IV NOTED ON RIGHT FA 18G HL. IV IS PATENT TO NS FLUSH AND INTACT. NO REDNESS OR SIGNS OF INFILTRATION NOTED. BED IN LOW LOCKED POSITION, SIDE RAILS UP X2, CALL LIGHT WITHIN REACH. WILL CONTINUE TO MONITOR.
[2017-10-01 20:00] VITALS: BP 133/58
[2017-10-01 22:00] VITALS: BP 133/58
[2017-10-01] MEDS: DOXAZOSIN MESYLATE (1 MG) 1 MG TABLET PO SCH (22:00)
[2017-10-01] MEDS: INSULIN DETEMIR 100 UNIT/ML CARTRIDGE SQ SCH (22:09)
[2017-10-02] MEDS: NITROGLYCERIN 30 GM TUBE TP SCH ×4 (05:47→17:40)
--- NOTE | 2017-10-02 06:30 | NUR ---
MS RN CLOSING NOTES PT REMAINS IN STABLE CONDITION. NO COMPLAINTS OF CHEST PAIN DURING SHIFT, ALL NEEDS WERE MET AND ORDERS CARRIED OUT ACCORDINGLY. ALL DUE MEDS GIVEN. WILL ENDORSE TO DAY SHIFT NURSE FOR MIRELLA
[2017-10-02] MEDS: BLOOD SUGAR DIAGNOSTIC 1 EACH STRIP IN SCH ×4 (06:36→22:39)
[2017-10-02] MEDS: INSULIN REGULAR, HUMAN 100 UNIT/ML 3 ML VIAL SQ PRN ×4 (06:44→22:41)
[2017-10-02] MEDS: PANTOPRAZOLE 40 MG TABLET.DR PO SCH ×2 (06:51→08:57)
--- NOTE | 2017-10-02 07:30 | NUR ---
MS/RN Patient received Patient received from rn shift mgr. Already seen by Dr Alberto and to be discharged to home later today. Call light within reach, will continue to monitor and ensure safety.
[2017-10-02 08:00] VITALS: BP 148/66
[2017-10-02] MEDS ORDERED: REGADENOSON 0.4 MG/5 ML DISP.SYRIN IVP ONE (08:00)
[2017-10-02] MEDS: FUROSEMIDE 20 MG TABLET PO SCH (08:56)
[2017-10-02] MEDS: CALCIUM CARB 600MG /VIT D 1 EACH TABLET PO SCH (08:56)
[2017-10-02] MEDS: ATORVASTATIN 10 MG TABLET PO SCH (08:57)
[2017-10-02] MEDS: FOLIC ACID 1 MG TABLET PO SCH (08:57)
[2017-10-02] MEDS: ASPIRIN 81 MG TAB.CHEW PO SCH (08:58)
[2017-10-02] MEDS: LOSARTAN POTASSIUM 25 MG TABLET PO SCH (08:58)
[2017-10-02] MEDS: AMLODIPINE BESYLATE 10 MG TABLET PO SCH (08:59)
[2017-10-02] MEDS: LINAGLIPTIN 5 MG TABLET PO SCH (08:59)
[2017-10-02] MEDS: FAMOTIDINE (20 MG) 20 MG TABLET PO SCH (08:59)
[2017-10-02] MEDS: ENOXAPARIN SODIUM 40 MG/0.4 ML DISP.SYRIN SQ SCH (09:00)
[2017-10-02] MEDS: CODEINE/PROMETHAZINE HCL 5 ML UDC PO PRN ×2 (09:00→17:05)
--- NOTE | 2017-10-02 09:09 | NUR ---
MS/RN Unable to scan medications Unable to scan two medications as packaging was torn -aspirin -tradjenta
--- NOTE | 2017-10-02 09:54 | NUR ---
MS/RN Exit care Exit care printed along with copy of chart.
--- NOTE | 2017-10-02 11:45 | NUR ---
MS/abrasive grader helper update Daughter at bedside and updated as to plan of care.
--- NOTE | 2017-10-02 12:15 | NUR ---
MS/RN Blood sugar Blood sugar at noon - 218, insulin coverage administered as per sliding scale.
[2017-10-02 16:00] VITALS: BP 150/67
--- NOTE | 2017-10-02 17:00 | NUR ---
MS/RN Blood sugar Blood sugar at 5p - 188, two units of regular insulin administered as per sliding scale.
--- NOTE | 2017-10-02 18:13 | NUR ---
MS/RN End note No changes in care at this time, remains in stable condition. All needs attended, for discharge to home tomorrow, daughter will provide transport home. Prescription given to patient's daughter to be filled today, copy made and placed in chart. Denies any chest pain or discomfort. Will continue to monitor and endorse to third shift lieutenant.
--- NOTE | 2017-10-02 19:25 | NUR ---
MS RN NOTES PATIENT RECEIVED IN BED, RESTING, WATCHING TV. A & O X 4, NO C/O CHEST PAIN, NO SOB, NO ACUTE DISTRESS NOTED. BED IN SEMI FINN POSITION FOR COMFORT. IV ACCESS TO RFA, HL, INTACT PATENT. IN STABLE CONDITION. BED IN LOW LOCKED POSITION. CALL LIGHT WITHIN REACH. WILL CONTINUE TO OBSERVE.
[2017-10-02 20:30] VITALS: BP 145/80
[2017-10-02 21:10] VITALS: BP 153/72
[2017-10-02] MEDS: ACETAMINOPHEN 325 MG TABLET PO PRN (22:38)
[2017-10-02] MEDS: DOXAZOSIN MESYLATE (1 MG) 1 MG TABLET PO SCH (22:38)
--- NOTE | 2017-10-02 22:38 | NUR ---
PRN TYLENOL GIVEN PT C/O BACK PAIN 01/05 & ASKED TO TAKE TYLENOL. PRN TYLENOL GIVEN ORDERED. WILL MONITOR FOR THE EFFECTIVENESS.
[2017-10-02] MEDS: INSULIN DETEMIR 100 UNIT/ML CARTRIDGE SQ SCH (22:40)
[2017-10-03] MEDS: NITROGLYCERIN 30 GM TUBE TP SCH ×4 (06:16→17:01)
--- NOTE | 2017-10-03 06:45 | NUR ---
MS RN CLOSING NOTES PT SLEPT INTERMITTENTLY @ NIGHT. NO SOB, NO CP, NO ACUTE CHANGES NOTED. BRP WITH ASSIST, CONTINENT. IV ACCESS TO RFA, HL, INTACT PATENT. PRN PAIN MED GIVEN FOR BACK PAIN & WAS EFFECTIVE. KEPT WARM, CLEAN & DRY. BED IN LOW LOCKED POSITION. WILL ENDORSE TO AM RN FOR CONTINUITY OF CARE.
[2017-10-03] MEDS: BLOOD SUGAR DIAGNOSTIC 1 EACH STRIP IN SCH ×3 (06:54→17:00)
[2017-10-03] MEDS: INSULIN REGULAR, HUMAN 100 UNIT/ML 3 ML VIAL SQ PRN ×3 (07:00→17:00)
--- NOTE | 2017-10-03 07:45 | NUR ---
MS RN OPENING NOTES RECEIVED PATIENT IN NO APPARENT DISTRESS. PATIENT IS ALERT AND RESTING IN BED. BEDSIDE RAILS ARE UP X2. BED IS LOCKED AND LOWERED. WILL CONTINUE TO MONITOR. CALL LIGHT IS WITHIN REACH.
[2017-10-03 08:00] VITALS: BP 155/63
[2017-10-03] MEDS: FAMOTIDINE (20 MG) 20 MG TABLET PO SCH ×2 (08:18→08:50)
[2017-10-03] MEDS: PANTOPRAZOLE 40 MG TABLET.DR PO SCH (08:18)
[2017-10-03] MEDS: LOSARTAN POTASSIUM 25 MG TABLET PO SCH (08:19)
[2017-10-03] MEDS: ATORVASTATIN 10 MG TABLET PO SCH (08:19)
[2017-10-03] MEDS: FUROSEMIDE 20 MG TABLET PO SCH (08:19)
[2017-10-03] MEDS: CALCIUM CARB 600MG /VIT D 1 EACH TABLET PO SCH (08:20)
[2017-10-03 08:21] VITALS: BP 155/63
[2017-10-03] MEDS: FOLIC ACID 1 MG TABLET PO SCH (08:21)
[2017-10-03] MEDS: ASPIRIN 81 MG TAB.CHEW PO SCH (08:21)
[2017-10-03] MEDS: AMLODIPINE BESYLATE 10 MG TABLET PO SCH (08:21)
[2017-10-03] MEDS: LINAGLIPTIN 5 MG TABLET PO SCH (08:21)
[2017-10-03] MEDS: ENOXAPARIN SODIUM 40 MG/0.4 ML DISP.SYRIN SQ SCH (08:22)
[2017-10-03] MEDS: CODEINE/PROMETHAZINE HCL 5 ML UDC PO PRN (13:07)
--- NOTE | 2017-10-03 17:52 | NUR ---
PATIENT DISCHARGED IN NO APPARENT DISTRESS. PATIENT IS STABLE. ALL MEETS WERE MET. IV WAS REMOVED. EXITCARE EDUCATION WAS PROVIDED. NEW PRESCRIPTION MEDICATION WAS PROVIDED. PATIENT WAS ESCORTED TO HER CAR. DAUGHTER RAJAN WILL BE DRIVING.
== END 2017-10-03 18:06 | disposition home health service (06) | DRG 202 ==
LOC: ER 00:38 → TELE 02:49 → MED 09:54
PROVIDERS: ADMIT Legal Medicine; ATTEND Legal Medicine
DX: J20.9 Acute bronchitis, unspecified (principal); I50.32 Chronic diastolic (congestive) heart failure; E11.9 Type 2 diabetes mellitus without complications; E66.01 Morbid (severe) obesity due to excess calories; I11.0 Hypertensive heart disease with heart failure; I35.0 Nonrheumatic aortic (valve) stenosis; I25.10 Atherosclerotic heart disease of native coronary artery without angina pectoris; E78.5 Hyperlipidemia, unspecified; Z90.49 Acquired absence of other specified parts of digestive tract; Z90.710 Acquired absence of both cervix and uterus; Z79.82 Long term (current) use of aspirin; Z79.4 Long term (current) use of insulin; Z88.1 Allergy status to other antibiotic agents; Z88.5 Allergy status to narcotic agent; F41.9 Anxiety disorder, unspecified; G47.33 Obstructive sleep apnea (adult) (pediatric); R30.0 Dysuria
CPT/HCPCS: 36415; 71010-TC; 80048-TC; 80061-TC; 82962-TC; 83735-TC; 83880; 84484-TC; 85025-TC; 85652-TC; 85730-TC; 87081-TC; 93307-TC; A4606; J1650; J1815; J1940; Z7610

== ENCOUNTER 2017-10-08 19:41 | Inpatient (IN) | payer MEDICARE, MEDICAID ==
[~2017-10-08] VITALS: Ht 157.5 cm; Wt 98.0 kg
[~2017-10-08 19:41] MED LIST changes: +CALC-838 PO; +LOPE2CAP PO
--- NOTE | 2017-10-08 20:05 | NUR ---
PT PRESENTED TO THE ER WITH A C/O EPIGASTRIC PAIN THAT RADIATES TO MID STERNAL. PT IS AA&O X3. PT IS ALSO C/O GENERALIZED BODY ACHES/PAIN. PT IS ON THE MONITOR AND CONTINUOUS PULSE OX. PT'S FAMILY IS AT THE BEDSIDE.
[2017-10-08 20:18] LABS: BASOPHILS # (AUTO) 0.1 /CMM (0.0-0.2); BASOPHILS % (AUTO) 0.7 % (0.0-2.0); EOSINOPHILS # (AUTO) 0.3 /CMM (0.0-0.7); EOSINOPHILS % (AUTO) 3.6 % (0.0-6.0); HEMATOCRIT 36 % (33-45); HEMOGLOBIN 11.7 g/dL (11.5-14.8); LYMPHOCYTES # (AUTO) 1.9 /CMM (0.8-4.8); MEAN CORPUSCULAR HEMOGLOBIN 28 PG (26.0-33.0); MEAN CORPUSCULAR HGB CONC 32 g/dl (31.0-36.0); MEAN CORPUSCULAR VOLUME 86 fL (82-100); MONOCYTES # (AUTO) 0.6 /CMM (0.1-1.30); MONOCYTES % (AUTO) 6.6 % (2.0-12.0); NEUTROPHILS # (AUTO) 6.8 /CMM (1.8-8.9); NEUTROPHILS % (AUTO) 69.1 % (43.0-81.0); PLATELET COUNT (AUTO) 277 /CMM (150-450); RDW COEFFICIENT OF VARIATION 12.9 (11.5-15.0); RED BLOOD CELL COUNT(AUTO) 4.21 MIL/uL (4.0-5.2); WHITE BLOOD COUNT (AUTO) 9.7 K/uL (4.3-11.0)
--- NOTE | 2017-10-08 20:24 | NUR ---
PT REC'D A WARM BLANKET.
[2017-10-08 20:30] LABS: CALCIUM, SERUM 8.8 mg/dL (8.5-10.1); CARBON DIOXIDE 30 mmol/L (21-32); CHLORIDE 104 mmol/L (98-107); CREATININE 1.3 mg/dL (0.6-1.3); GLUCOSE 185 mg/dL (74-106); POTASSIUM 4.7 mmol/L (3.5-5.1); SODIUM SERUM 141 mmol/L (136-145); UREA NITROGEN, BLOOD 34 mg/dL (7-18)
[2017-10-08 20:32] LABS: INR 0.95 (0.87-1.13); PROTHROMBIN TIME 9.9 SECS (9.5-12.7)
[2017-10-08 20:36] LABS: TROPONIN I 0.033 ng/mL (0.00-0.056)
[2017-10-08 20:48] LABS: ALANINE AMINOTRANSFERASE 13 U/L (12-78); ALBUMIN 3.2 g/dL (3.4-5.0); ALKALINE PHOSPHATASE 71 U/L (46-116); ASPARTATE AMINOTRANSFERASE 16 U/L (15-37); B-TYPE NATRIURETIC PEPTIDE 1078 PG/ML (0-125); BILIRUBIN,DIRECT 0.1 mg/dL (0.0-0.2); BILIRUBIN,TOTAL 0.3 mg/dL (0.2-1.0); TOTAL PROTEIN, SERUM 7.3 g/dL (6.4-8.2)
--- NOTE | 2017-10-08 21:20 | NUR ---
PT'S FAMILY LEFT THE BEDSIDE. DAUGHTER WOULD LIKE TO BE CALLED WITH ANY QUESTIONS. NUMBER IS THE IN THE PT DATA... PERSON TO NOTIFY.
--- NOTE | 2017-10-08 21:22 | NUR ---
CALLED DR BLOOD ANSWERING SERVICE, LEFT VOICEMAIL.
[2017-10-08] MEDS ORDERED: ASPIRIN 325 MG TABLET PO ONE (21:30)
[2017-10-08] MEDS ORDERED: ASPIRIN 325 MG TABLET ONE (21:30)
[2017-10-08] MEDS ORDERED: FUROSEMIDE 20 MG/2 ML VIAL IV ONE (21:30)
[2017-10-08] MEDS ORDERED: FUROSEMIDE 20 MG/2 ML VIAL ONE (21:30)
--- NOTE | 2017-10-08 21:35 | NUR ---
PT MEDICATED ORDERED.
--- NOTE | 2017-10-08 21:45 | NUR ---
RECEIVED ORDERS FROM [facility]
--- NOTE | 2017-10-08 21:51 | NUR ---
PT APPEARS TO BE RESTING COMFORTABLY WITH NO S/S OF PAIN OR DISTRESS. CALL LIGHT IN REACH.
--- NOTE | 2017-10-08 21:57 | NUR ---
PT PLACED ON A BEDPAN
--- NOTE | 2017-10-08 21:59 | NUR ---
CALLING REPORT TO TELE NURSE. ORDERS FROM DR. MENDEZ IS IN THE CHART.
[2017-10-08 22:14] VITALS: BP 148/62
[2017-10-08 23:11] VITALS: BP 148/62
[2017-10-09] VITALS: BP 137/58
[2017-10-09] MEDS ORDERED: ENOXAPARIN SODIUM 40 MG/0.4 ML DISP.SYRIN SQ ONE (00:58)
[2017-10-09] MEDS ORDERED: ENOXAPARIN SODIUM 40 MG/0.4 ML DISP.SYRIN SQ SCH ×2 (01:30)
[2017-10-09] MEDS ORDERED: DEXTROSE 50%-WATER 50 ML DISP.SYRIN IV PRN (01:30)
[2017-10-09] MEDS ORDERED: HYDROCODONE/APAP 5/325MG 1 EACH TABLET PO PRN (01:30)
[2017-10-09 04:00] VITALS: BP 133/65
--- NOTE | 2017-10-09 05:06 | NUR ---
Patient is awake and alert. Speech is clear and will verbalize her needs good eye conyact. States the righjt sided chest "ache" just comes and goes, refused offer to be medicated at this time, stated she will think about it. She Knows the medication Lyndon she has some at home.Vital signs stable Remains in sinus Bradycardia on the monitor. Enjoys conversation.. No N/V this 12 hours.
[2017-10-09] MEDS ORDERED: NITROGLYCERIN PACKET 1 GM PACKET TOP SCH (06:00)
[2017-10-09] MEDS ORDERED: NITROGLYCERIN PACKET 1 GM PACKET ONE (06:23)
[2017-10-09] MEDS: INSULIN REGULAR, HUMAN 100 UNIT/ML 3 ML VIAL SQ PRN ×3 (06:33→16:55)
[2017-10-09 07:00] VITALS: BP 138/63
[2017-10-09 07:16] LABS: CARBON DIOXIDE 33 mmol/L (21-32); CHLORIDE 104 mmol/L (98-107); CREATININE 1.2 mg/dL (0.6-1.3); GLUCOSE 129 mg/dL (74-106); MAGNESIUM 2.3 mg/dL (1.8-2.4); POTASSIUM 4.8 mmol/L (3.5-5.1); SODIUM SERUM 141 mmol/L (136-145); UREA NITROGEN, BLOOD 31 mg/dL (7-18)
[2017-10-09 07:18] LABS: BASOPHILS # (AUTO) 0.1 /CMM (0.0-0.2); BASOPHILS % (AUTO) 0.6 % (0.0-2.0); EOSINOPHILS # (AUTO) 0.4 /CMM (0.0-0.7); EOSINOPHILS % (AUTO) 4.6 % (0.0-6.0); HEMATOCRIT 38 % (33-45); HEMOGLOBIN 12.3 g/dL (11.5-14.8); LYMPHOCYTES % (AUTO) 22.9 % (20.0-44.0); MEAN CORPUSCULAR HEMOGLOBIN 28 PG (26.0-33.0); MEAN CORPUSCULAR HGB CONC 33 g/dl (31.0-36.0); MEAN CORPUSCULAR VOLUME 86 fL (82-100); MONOCYTES # (AUTO) 0.7 /CMM (0.1-1.30); MONOCYTES % (AUTO) 7.6 % (2.0-12.0); NEUTROPHILS # (AUTO) 5.5 /CMM (1.8-8.9); NEUTROPHILS % (AUTO) 64.3 % (43.0-81.0); PLATELET COUNT (AUTO) 270 /CMM (150-450); RDW COEFFICIENT OF VARIATION 13.6 (11.5-15.0); RED BLOOD CELL COUNT(AUTO) 4.38 MIL/uL (4.0-5.2); WHITE BLOOD COUNT (AUTO) 8.6 K/uL (4.3-11.0)
[2017-10-09] MEDS ORDERED: BLOOD SUGAR DIAGNOSTIC 1 EACH STRIP IN SCH ×2 (07:30→09:00)
--- NOTE | 2017-10-09 07:35 | NUR ---
RN NOTES PT ASLEEP COMFORTABLE IN BED, EASILY AROUSABLE DURING CARE ALERT AND ORIENTED X3, ABLE TO MAKE NEEDS KNOWN, NOTED WITH FORGETFULNESS. RESPIRATIONS EVEN AND UNLABORED, DENIES ANY PAIN OR DISCOMFORT. IV ACCESS PATENT AND INTACT NO REDNESS OR INFILTRATION. SAFETY MEASURES IN PLACE, REORIENTED NEEDED, KEPT CLEAN DRY AND COMFORTABLE CALL LIGHT WITHIN EASY REACH
[2017-10-09 07:40] LABS: CHOLESTEROL 203 mg/dL (<200); HDL CHOLESTEROL 47 mg/dL (40-60); LDL 130 mg/dL (0-99); TRIGLYCERIDES 171 mg/dL (30-150)
[2017-10-09 08:00] VITALS: BP 139/57
[2017-10-09] MEDS ORDERED: POTASSIUM CHLORIDE 10 MEQ/50 ML PREMIXED IVPB FOR PERIPHERAL LINE IV ONE (09:00)
[2017-10-09] MEDS ORDERED: FUROSEMIDE 40 MG/4 ML VIAL IV SCH (09:00)
[2017-10-09] MEDS: LOSARTAN POTASSIUM 25 MG TABLET PO SCH ×2 (09:00→12:44)
[2017-10-09] MEDS ORDERED: ASPIRIN 81 MG TAB.CHEW PO SCH (09:00)
[2017-10-09] MEDS: AMLODIPINE BESYLATE 10 MG TABLET PO SCH (09:00)
[2017-10-09] MEDS: FUROSEMIDE 20 MG TABLET PO SCH (09:33)
[2017-10-09] MEDS: LINAGLIPTIN 5 MG TABLET PO SCH (09:34)
[2017-10-09] MEDS: FAMOTIDINE (20 MG) 20 MG TABLET PO SCH (09:34)
[2017-10-09] MEDS: PANTOPRAZOLE 40 MG TABLET.DR PO SCH (09:34)
[2017-10-09] MEDS: POTASSIUM CHLORIDE 20 MEQ TAB.PRT.SR PO SCH ×2 (09:34→21:34)
[2017-10-09] MEDS: FOLIC ACID 1 MG TABLET PO SCH (09:34)
[2017-10-09] MEDS: ASPIRIN 81 MG TAB.CHEW PO SCH (09:34)
--- NOTE | 2017-10-09 11:00 | NUR ---
RN NOTES PER DR MENDEZ TO HOLD AMLODOPINE AND NITRO PATCH WILL CONTINUE TO MONITOR
[2017-10-09] MEDS: NITROGLYCERIN 30 GM TUBE TP SCH ×2 (12:00→17:03)
[2017-10-09] MEDS: ONDANSETRON HCL/PF 4 MG/2 ML VIAL IV PRN ×2 (12:44→17:25)
[2017-10-09 16:00] VITALS: BP 142/63
[2017-10-09] MEDS: BLOOD SUGAR DIAGNOSTIC 1 EACH STRIP IN SCH ×2 (16:52→22:00)
--- NOTE | 2017-10-09 19:45 | NUR ---
Recieve patient in room in bed a/a/o *4; respiratory normal rate no sign of distress pain level verbalized at 5 no pain meds requested at that time; Pt verbalized wearing diaper and incontinent; skin intact; wrist band on, bed alarm on, RFA 22G Heplock dry intact, gave routine Medication; patient recieved well; uneventfull 2357 BS check 156 2U regular insulin given
[2017-10-09 20:00] VITALS: BP 143/62
[2017-10-09] MEDS: ENOXAPARIN SODIUM 40 MG/0.4 ML DISP.SYRIN SQ SCH (21:38)
[2017-10-10] MEDS: INSULIN REGULAR, HUMAN 100 UNIT/ML 3 ML VIAL SQ PRN ×4 (02:09→21:59)
[2017-10-10] MEDS: NITROGLYCERIN 30 GM TUBE TP SCH ×4 (06:00→17:02)
--- NOTE | 2017-10-10 06:30 | NUR ---
Pt in bed safe asleep and stated slept well BS 186 3u regular insulin given report given to new on coming víctor nurse B/p 109/50 Nitroglycerin held for 629
[2017-10-10] MEDS: BLOOD SUGAR DIAGNOSTIC 1 EACH STRIP IN SCH ×5 (06:33→21:57)
--- NOTE | 2017-10-10 07:15 | NUR ---
RN INITIAL NOTES REPORT RECEIVED AT THE BEDSIDE. PATIENT IS SLEEPING. NO SOB OR DISTRESS NOTED AT THIS TIME. PATIENT DOES NOT APPEAR TO BE IN PAIN. NO FACIAL GRIMACE NOTED. BED IN A LOW POSITION, CALL LIGHT WITHIN PATIENT REACH. WILL CONTINUE TO MONITOR.
[2017-10-10 08:00] VITALS: BP 127/51
[2017-10-10] MEDS: LOSARTAN POTASSIUM 25 MG TABLET PO SCH (09:00)
[2017-10-10] MEDS: AMLODIPINE BESYLATE 10 MG TABLET PO SCH (09:00)
[2017-10-10] MEDS: FUROSEMIDE 20 MG TABLET PO SCH (09:27)
[2017-10-10] MEDS: PANTOPRAZOLE 40 MG TABLET.DR PO SCH (09:28)
[2017-10-10] MEDS: ASPIRIN 81 MG TAB.CHEW PO SCH (09:28)
[2017-10-10] MEDS: FOLIC ACID 1 MG TABLET PO SCH (09:28)
[2017-10-10] MEDS: FAMOTIDINE (20 MG) 20 MG TABLET PO SCH (09:28)
[2017-10-10] MEDS: LINAGLIPTIN 5 MG TABLET PO SCH (09:28)
[2017-10-10] MEDS: POTASSIUM CHLORIDE 20 MEQ TAB.PRT.SR PO SCH ×2 (09:28→21:56)
--- NOTE | 2017-10-10 11:22 | NUR ---
HELD NITROL DOSE PER MD ORDER. NOTES SAY TO HOLD NITROL AND AMLODIPINE UNTIL NEW ORDERS ARE MADE.
[2017-10-10] MEDS: ONDANSETRON HCL/PF 4 MG/2 ML VIAL IV PRN (15:37)
[2017-10-10 16:00] VITALS: BP 139/100
--- NOTE | 2017-10-10 19:16 | NUR ---
NO SIGNIFICANT CHANGES IN PATIENT CONDITION THROUGHOUT THE SHIFT. NO SOB OR DISTRESS NOTED AT THIS TIME. PATIENT DENIES SIGNIFICANT PAIN. BED IN A LOW POSITION. CALL LIGHT WITHIN PATIENT REACH. ENDORSED TO ARNALDO SANDERS, FOR MIRELLA.
--- NOTE | 2017-10-10 19:30 | NUR ---
MS RN OPENING NOTES: PATIENT IN BED, AOX4, ON O2 AT 3 LPM VIA NC, BREATHING EVEN AND UNLABORED. APPEARS CALM AND IN NO DISTRESS. APPEARS CALM AND IN NO DISTRESS. LIDIA PAIN AT TIME. PIV OVER R HAND G 20 INTACT AND PATENT TO FLUSH. PROVIDED FOR COMFORT AND SAFETY. BED IN LOWEST AND LOCKED POSITION, SIDERAILS UP X 3. CALL LIGHT WITHIN REACH. WILL CONT TO MONITOR.
[2017-10-10 20:00] VITALS: BP 144/64
[2017-10-10] MEDS: ENOXAPARIN SODIUM 40 MG/0.4 ML DISP.SYRIN SQ SCH (21:57)
--- NOTE | 2017-10-10 22:04 | NUR ---
RN NOTES: BLOOD SUGAR CHECKED AT 206 MG/DL, ADMINISTERED 4 UNITS REGULAR INSULIN PER SCALE. GAVE LIGHT SNACK TO PATIENT AFTERWARDS.
--- NOTE | 2017-10-11 00:10 | NUR ---
RN NOTES: PATIENT REFUSED NITROL OINTMENT. RISKS AND BENEFITS EXPLAINED, PATIENT STILL REFUSES. BP 138/63 AT THIS TIME.
[2017-10-11 05:59] LABS: BASOPHILS % (AUTO) 0.6 % (0.0-2.0); EOSINOPHILS # (AUTO) 0.3 /CMM (0.0-0.7); HEMATOCRIT 36 % (33-45); HEMOGLOBIN 11.7 g/dL (11.5-14.8); LYMPHOCYTES # (AUTO) 1.8 /CMM (0.8-4.8); LYMPHOCYTES % (AUTO) 22.6 % (20.0-44.0); MEAN CORPUSCULAR HEMOGLOBIN 29 PG (26.0-33.0); MEAN CORPUSCULAR HGB CONC 33 g/dl (31.0-36.0); MEAN CORPUSCULAR VOLUME 87 fL (82-100); MONOCYTES # (AUTO) 0.6 /CMM (0.1-1.30); MONOCYTES % (AUTO) 7.5 % (2.0-12.0); NEUTROPHILS # (AUTO) 5.2 /CMM (1.8-8.9); NEUTROPHILS % (AUTO) 65.3 % (43.0-81.0); PLATELET COUNT (AUTO) 241 /CMM (150-450); RDW COEFFICIENT OF VARIATION 13.9 (11.5-15.0); RED BLOOD CELL COUNT(AUTO) 4.12 MIL/uL (4.0-5.2); WHITE BLOOD COUNT (AUTO) 7.9 K/uL (4.3-11.0)
[2017-10-11] MEDS: NITROGLYCERIN 30 GM TUBE TP SCH ×5 (06:00→23:53)
[2017-10-11 06:12] LABS: CALCIUM, SERUM 8.9 mg/dL (8.5-10.1); CARBON DIOXIDE 34 mmol/L (21-32); CHLORIDE 104 mmol/L (98-107); CREATININE 1.8 mg/dL (0.6-1.3); GLUCOSE 194 mg/dL (74-106); MAGNESIUM 2.3 mg/dL (1.8-2.4); POTASSIUM 5.7 mmol/L (3.5-5.1); SODIUM SERUM 137 mmol/L (136-145); UREA NITROGEN, BLOOD 41 mg/dL (7-18)
[2017-10-11] MEDS: PANTOPRAZOLE 40 MG TABLET.DR PO SCH (06:42)
[2017-10-11] MEDS: BLOOD SUGAR DIAGNOSTIC 1 EACH STRIP IN SCH ×4 (06:42→21:18)
[2017-10-11] MEDS: INSULIN REGULAR, HUMAN 100 UNIT/ML 3 ML VIAL SQ PRN ×4 (06:46→21:18)
--- NOTE | 2017-10-11 07:13 | NUR ---
MS RN CLOSING NOTES: PATIENT IN BED, AOX4, ON ROOM AIR, BREATHING EVEN AND UNLABORED. APPEARS CALM AND IN NO DISTRESS. DENIES PAIN. DUE MEDS GIVEN. PROVIDED FOR COMFORT AND SAFETY. MORNING BLOOD GLUCOSE CHECKED AT 186 MG/DL, ADMINISTERED 3 UNITS SQ REGULAR INSULIN PER SCALE. BED IN LOWEST AND LOCKED POSITION, CALL LIGHT WITHIN REACH. WILL ENDORSE TO AM RN FOR MIRELLA.
[2017-10-11 08:00] VITALS: BP 141/62
[2017-10-11] MEDS ORDERED: IV NS 0.9% 1,000 ML IV PRN (08:48)
[2017-10-11] MEDS: LINAGLIPTIN 5 MG TABLET PO SCH (09:43)
[2017-10-11] MEDS: FAMOTIDINE (20 MG) 20 MG TABLET PO SCH (09:43)
[2017-10-11] MEDS: ASPIRIN 81 MG TAB.CHEW PO SCH (09:44)
[2017-10-11] MEDS: AMLODIPINE BESYLATE 10 MG TABLET PO SCH (09:51)
[2017-10-11] MEDS: FOLIC ACID 1 MG TABLET PO SCH (09:53)
--- NOTE | 2017-10-11 10:00 | NUR ---
MS RN NOTE INFORMED DR. MENDEZ OF PATIENT'S INCREASE POTASSIUM LEVEL. RECEIVED AN ORDER FOR KAYEXALATE 15 G ONCE.
--- NOTE | 2017-10-11 10:11 | NUR ---
MS RN NOTE DR MENDEZ AT THE BEDSIDE
[2017-10-11 10:22] LABS: CALCIUM, SERUM 8.7 mg/dL (8.5-10.1); CARBON DIOXIDE 33 mmol/L (21-32); CHLORIDE 104 mmol/L (98-107); CREATININE 1.8 mg/dL (0.6-1.3); GLUCOSE 195 mg/dL (74-106); POTASSIUM 5.7 mmol/L (3.5-5.1); SODIUM SERUM 139 mmol/L (136-145); UREA NITROGEN, BLOOD 41 mg/dL (7-18)
[2017-10-11 10:28] LABS: ALANINE AMINOTRANSFERASE 15 U/L (12-78); ALBUMIN 2.8 g/dL (3.4-5.0); ALKALINE PHOSPHATASE 69 U/L (46-116); ASPARTATE AMINOTRANSFERASE 12 U/L (15-37); BILIRUBIN,TOTAL 0.2 mg/dL (0.2-1.0); TOTAL PROTEIN, SERUM 6.8 g/dL (6.4-8.2)
[2017-10-11] MEDS ORDERED: SODIUM POLYSTYRENE SULFONATE 15 G/60 ML BOTTLE PO ONE (10:30)
[2017-10-11] MEDS ORDERED: BUMETANIDE INJ 0.25 MG/ML VIAL IV ONE (10:30)
--- NOTE | 2017-10-11 10:50 | NUR ---
MS RN NOTE PATIENT REFUSED BUMEX.
[2017-10-11] MEDS ORDERED: FUROSEMIDE 20 MG/2 ML VIAL IV ONE (11:00)
[2017-10-11] MEDS: GUAIFENESIN LA 600 MG TABLET.SA PO SCH ×2 (11:14→21:19)
[2017-10-11] MEDS: CEFTRIAXONE 1 G in IV D5W 50 ML IV SCH (11:38)
[2017-10-11] MEDS: Z GUARD REMEDY 2 OZ OINT TP PRN ×2 (12:52→17:43)
--- NOTE | 2017-10-11 12:53 | NUR ---
MS RN NOTE NITRO IS NOT IN THE CASETTE. PHARMACY INFORMED. WILL ADMINISTER ONCE DELIVERED BY THE PHARMACY.
[2017-10-11 16:00] VITALS: BP 144/67
[2017-10-11 16:08] VITALS: BP 144/67
--- NOTE | 2017-10-11 16:35 | NUR ---
MS RN NOTE PER PHARMACY RECOMMENDATION DR. MENDEZ ORDERED LONG ACTING INSULIN FOR PATIENT. RECEIVED ORDER FOR LANTUS 25 UNITS HS. ORDER READ BACK AND VERIFIED.
--- NOTE | 2017-10-11 19:00 | NUR ---
RN NOTES IN BED RESTING COMFORTABLY. A/O X 4, PT IN STABLE CONDITION, NO S/S OF DISTRESS. SAFETY MEASURES ARE IN PLACE, CALL LIGHT IS IN REACH. WILL CONTINUE TO MONITOR.
[2017-10-11 20:00] VITALS: BP 126/65
[2017-10-11] MEDS: INSULIN DETEMIR 100 UNIT/ML CARTRIDGE SQ SCH (21:18)
[2017-10-11] MEDS: ENOXAPARIN SODIUM 40 MG/0.4 ML DISP.SYRIN SQ SCH (21:19)
[2017-10-11] MEDS ORDERED: INSULIN GLARGINE, 100 UNIT/ML CARTRIDGE SQ SCH (22:00)
--- NOTE | 2017-10-11 22:00 | NUR ---
MS RN NOTES LEVEMIR 25 UNITS DUE AT 2200 NON ADMINISTRATION PATIENT REFUSED MEDS DESPITE EXPLAINING RISKS AND BENEFITS OFFERED 3 TIMES STILL REFUSED. PT A/O X4, BS 127 MG/DL
[2017-10-12] MEDS: NITROGLYCERIN 30 GM TUBE TP SCH ×2 (05:52→12:02)
[2017-10-12] MEDS: BLOOD SUGAR DIAGNOSTIC 1 EACH STRIP IN SCH ×4 (05:53→22:08)
[2017-10-12] MEDS: INSULIN REGULAR, HUMAN 100 UNIT/ML 3 ML VIAL SQ PRN ×4 (05:58→22:01)
--- NOTE | 2017-10-12 06:35 | NUR ---
MS RN CLOSING NOTES ASLEEP AND EASILY AWAKEN, HOB ELEVATED, RESPIRATIONS EVEN AND UNLABORED. ON 2LPM VIA NC 02 SAT AT 97% IN STABLE CONDITION. NOT IN S/S DISTRESS. KEPT CLEAN AND DRY AND COMFORTABLE, ALL NURSING CARE RENDERED. NEEDS ATTENDED AND ANTICIPATED, FREQUENT VISUAL CHECK DONE FOR SAFETY EVERY 2 HOURS. ASSISTED REPOSITION EVERY 2 HOURS FOR SKIN MGT. NO COMPLAINS OF PAIN, ON LOW BED AT ALL TIMES TO ENSURE SAFETY. SAFE HAZARD FREE ENVIRONMENT PROVIDED. CALL LIGHT WITHIN EASY TO REACH. WILL ENDORSE NEXT SHIFT CONTINUITY OF CARE.
[2017-10-12 06:44] LABS: BASOPHILS % (AUTO) 0.4 % (0.0-2.0); EOSINOPHILS # (AUTO) 0.2 /CMM (0.0-0.7); HEMATOCRIT 37 % (33-45); HEMOGLOBIN 11.9 g/dL (11.5-14.8); LYMPHOCYTES # (AUTO) 1.5 /CMM (0.8-4.8); LYMPHOCYTES % (AUTO) 18.8 % (20.0-44.0); MEAN CORPUSCULAR HEMOGLOBIN 28 PG (26.0-33.0); MEAN CORPUSCULAR HGB CONC 32 g/dl (31.0-36.0); MEAN CORPUSCULAR VOLUME 87 fL (82-100); MONOCYTES # (AUTO) 0.5 /CMM (0.1-1.30); MONOCYTES % (AUTO) 5.7 % (2.0-12.0); NEUTROPHILS # (AUTO) 5.9 /CMM (1.8-8.9); NEUTROPHILS % (AUTO) 72.1 % (43.0-81.0); PLATELET COUNT (AUTO) 238 /CMM (150-450); RDW COEFFICIENT OF VARIATION 13.6 (11.5-15.0); RED BLOOD CELL COUNT(AUTO) 4.26 MIL/uL (4.0-5.2); WHITE BLOOD COUNT (AUTO) 8.1 K/uL (4.3-11.0)
[2017-10-12 06:57] LABS: ALANINE AMINOTRANSFERASE 17 U/L (12-78); ALBUMIN 2.8 g/dL (3.4-5.0); ALKALINE PHOSPHATASE 66 U/L (46-116); ASPARTATE AMINOTRANSFERASE 15 U/L (15-37); BILIRUBIN,TOTAL 0.2 mg/dL (0.2-1.0); CALCIUM, SERUM 8.8 mg/dL (8.5-10.1); CARBON DIOXIDE 34 mmol/L (21-32); CHLORIDE 105 mmol/L (98-107); CREATININE 1.6 mg/dL (0.6-1.3); GLUCOSE 184 mg/dL (74-106); MAGNESIUM 2.4 mg/dL (1.8-2.4); PHOSPHORUS 4.7 mg/dL (2.5-4.9); SODIUM SERUM 141 mmol/L (136-145); TOTAL PROTEIN, SERUM 6.9 g/dL (6.4-8.2); UREA NITROGEN, BLOOD 39 mg/dL (7-18)
[2017-10-12 08:00] VITALS: BP 124/68
[2017-10-12] MEDS: AMLODIPINE BESYLATE 10 MG TABLET PO SCH (08:30)
[2017-10-12] MEDS: FOLIC ACID 1 MG TABLET PO SCH (08:31)
[2017-10-12] MEDS: FAMOTIDINE (20 MG) 20 MG TABLET PO SCH (08:31)
[2017-10-12] MEDS: PANTOPRAZOLE 40 MG TABLET.DR PO SCH (08:32)
[2017-10-12] MEDS: GUAIFENESIN LA 600 MG TABLET.SA PO SCH ×2 (08:32→21:00)
[2017-10-12] MEDS: ASPIRIN 81 MG TAB.CHEW PO SCH (08:32)
[2017-10-12] MEDS: LINAGLIPTIN 5 MG TABLET PO SCH (08:32)
--- NOTE | 2017-10-12 08:55 | NUR ---
m/s shoe singer: md visit and cardio f/u seen and examined by dr. quijano and dr. benavidez at this time with order of ana maria abel. order acknowledged. pt made aware.
--- NOTE | 2017-10-12 10:00 | NUR ---
m/s contestant coordinator: notes pt c/o constipation for 2 days and wants to manual disimpaction. offered prune juice, but pt refused. left message to dr. quijano. pt aware.
--- NOTE | 2017-10-12 11:00 | NUR ---
m/s library services assistant: notes left another message to dr. quijano re: constipation and to clarify order of norvasc and nitro paste via voice mail. will continue to monitor.
[2017-10-12] MEDS: CEFTRIAXONE 1 G in IV D5W 50 ML IV SCH (11:33)
--- NOTE | 2017-10-12 13:30 | NUR ---
m/s dough mixer helper: notes pt is okay now, pt had a bowel movement, but request for stool softener. dr. quijano called back with new orders. orders read back and carried out and acknowledged.
[2017-10-12 16:00] VITALS: BP 121/78
[2017-10-12] MEDS: DOCUSATE SODIUM 100 MG CAPSULE PO SCH (16:54)
--- NOTE | 2017-10-12 16:57 | NUR ---
m/s senior abap developer: notes family brought outside food (regular). informed pt and family pt is on diabetic diet and understood teaching, but still wants to eat in and out burger with regular shake. bs check 169, covered with 3 units of regular insulin sq as ordered. instructed to call for assistance. will monitor.
--- NOTE | 2017-10-12 18:30 | NUR ---
m/s tailor garment fitter: notes in bed resting comfortable. needs attended. family remains at bedside. assisted to bsc and back to bed by nurses aid. instructed to call for assistance. will continue to monitor.
--- NOTE | 2017-10-12 19:20 | NUR ---
MS/RN OPENING NOTES PT RECEIVED SITTING UP IN BED. A/OX4, ON ROOM AIR, BREATHING EVEN AND UNLABORED. DENIES SOB, NOTES SLIGHT ABDOMINAL TENDERNESS BUT DOES NOT WANT PAIN MEDICATION AT THIS TIME. IV TO RIGHT HAND PATENT AND INTACT. BED IN LOW/LOCKED POSITION WITH CALL LIGHT IN REACH. SIDE RAILS UPX2 AND BED ALARM ON FOR SAFETY. WILL CONTINUE TO MONITOR
[2017-10-12 20:00] VITALS: BP 142/63
[2017-10-12] MEDS: ENOXAPARIN SODIUM 40 MG/0.4 ML DISP.SYRIN SQ SCH (22:00)
[2017-10-12] MEDS: INSULIN DETEMIR 100 UNIT/ML CARTRIDGE SQ SCH (22:00)
--- NOTE | 2017-10-12 22:00 | NUR ---
MS/RN NOTES PT REFUSED SCHEDULED MUCINEX AFTER OPENING PACKAGE. WASTED IN MED ROOM
[2017-10-13] MEDS: NITROGLYCERIN 0.4 MG/TAB BOTTLE SL PRN (05:07)
--- NOTE | 2017-10-13 05:11 | NUR ---
MS/RN NOTES PT C/O 7/10 CHEST TIGHTNESS RADIATING TO LEFT ARM AND LEFT BACK. PD=846/73, HR=71 PRN NITRO GIVEN ORDERED. STAT EKG ORDERED. REPAIRER VENEER SHEET MADE AWARE
--- NOTE | 2017-10-13 05:16 | NUR ---
MS/RN NOTES PT FEELING RELIEF S/P X1 NITRO DOSE. BP [id number]=215/62, HR=66 EKG=NSR WITH PVC, OLD INFARCT NOTED
[2017-10-13] MEDS: BLOOD SUGAR DIAGNOSTIC 1 EACH STRIP IN SCH ×4 (06:48→22:00)
[2017-10-13] MEDS: INSULIN REGULAR, HUMAN 100 UNIT/ML 3 ML VIAL SQ PRN ×4 (06:58→22:01)
--- NOTE | 2017-10-13 07:47 | NUR ---
MS/RN CLOSING NOTES PT RESTING COMFORTABLY IN BED. REMAINS ON ROOM AIR, NO SOB. BREATHING EVEN AND UNLABORED. NO APPARENT DISTRESS NOTED. STATES CHEST DISCOMFORT HAS IMPROVED. IV TO RIGHT HAND PATENT AND INTACT. MADE PT COMFORTABLE DURING SHIFT. EDUCATED PRN AND PROVIDED EMOTIONAL SUPPORT, PT IS AFRAID TO GO HOME ANYTIME SOON. PRODUCTIVE COUGH NOTED, ENCOURAGED PULMONARY TOILETING. BED IN LOW/LOCKED POSITION WITH CALL LIGHT IN REACH. SIDE RAILS UPX2. ENDORSED TO AM SHIFT MIRELLA.
--- NOTE | 2017-10-13 07:50 | NUR ---
MS RN RECEIVED ON BED, AWAKE,ALERT,ORIENTED X4,NOT IN ANY FORM OF DISTRESS, RESPIRATIONS EVEN AND UNLABORED,NO SOB NOTED, LUNGS ARE CLEAR,ABDOMEN SOFT,POSITIVE BOWEL SOUNDS, DENIES PAIN AT THIS TIME, WILL MONITOR PATIENT'S CONDITION.
[2017-10-13 08:00] VITALS: BP 145/60
[2017-10-13] MEDS: GUAIFENESIN LA 600 MG TABLET.SA PO SCH ×2 (09:00→20:18)
[2017-10-13] MEDS: AMLODIPINE BESYLATE 10 MG TABLET PO SCH (09:00)
[2017-10-13 09:05] LABS: BASOPHILS % (AUTO) 0.3 % (0.0-2.0); EOSINOPHILS # (AUTO) 0.3 /CMM (0.0-0.7); EOSINOPHILS % (AUTO) 3.5 % (0.0-6.0); HEMATOCRIT 37 % (33-45); HEMOGLOBIN 11.9 g/dL (11.5-14.8); LYMPHOCYTES # (AUTO) 2.1 /CMM (0.8-4.8); LYMPHOCYTES % (AUTO) 23.2 % (20.0-44.0); MEAN CORPUSCULAR HEMOGLOBIN 28 PG (26.0-33.0); MEAN CORPUSCULAR HGB CONC 33 g/dl (31.0-36.0); MEAN CORPUSCULAR VOLUME 86 fL (82-100); MONOCYTES # (AUTO) 0.6 /CMM (0.1-1.30); MONOCYTES % (AUTO) 6.3 % (2.0-12.0); NEUTROPHILS % (AUTO) 66.7 % (43.0-81.0); PLATELET COUNT (AUTO) 255 /CMM (150-450); RDW COEFFICIENT OF VARIATION 13.9 (11.5-15.0); RED BLOOD CELL COUNT(AUTO) 4.24 MIL/uL (4.0-5.2)
[2017-10-13 09:13] LABS: CALCIUM, SERUM 9.2 mg/dL (8.5-10.1); CARBON DIOXIDE 33 mmol/L (21-32); CHLORIDE 107 mmol/L (98-107); CREATININE 1.2 mg/dL (0.6-1.3); GLUCOSE 128 mg/dL (74-106); POTASSIUM 4.8 mmol/L (3.5-5.1); SODIUM SERUM 143 mmol/L (136-145); UREA NITROGEN, BLOOD 33 mg/dL (7-18)
[2017-10-13 09:16] LABS: ALANINE AMINOTRANSFERASE 14 U/L (12-78); ALKALINE PHOSPHATASE 68 U/L (46-116); ASPARTATE AMINOTRANSFERASE 14 U/L (15-37); BILIRUBIN,TOTAL 0.3 mg/dL (0.2-1.0); MAGNESIUM 2.3 mg/dL (1.8-2.4); PHOSPHORUS 4.3 mg/dL (2.5-4.9); TOTAL PROTEIN, SERUM 7.1 g/dL (6.4-8.2)
[2017-10-13] MEDS: FAMOTIDINE (20 MG) 20 MG TABLET PO SCH (09:17)
[2017-10-13] MEDS: FOLIC ACID 1 MG TABLET PO SCH (09:17)
[2017-10-13] MEDS: ASPIRIN 81 MG TAB.CHEW PO SCH (09:17)
[2017-10-13] MEDS: LINAGLIPTIN 5 MG TABLET PO SCH (09:17)
[2017-10-13] MEDS: DOCUSATE SODIUM 100 MG CAPSULE PO SCH ×2 (09:17→16:23)
[2017-10-13] MEDS: PANTOPRAZOLE 40 MG TABLET.DR PO SCH (09:19)
--- NOTE | 2017-10-13 09:30 | NUR ---
MS MCINTOSH BREAKFAST SERVED, DUE MEDS GIVEN,TOLERATED WELL.
--- NOTE | 2017-10-13 11:00 | NUR ---
MS MCINTOSH WAS SEEN BY SOLEDAD W/ ORDERS MADE AND CARRIED OUT.
[2017-10-13] MEDS: CEFTRIAXONE 1 G in IV D5W 50 ML IV SCH (11:13)
[2017-10-13 16:00] VITALS: BP 157/66
[2017-10-13 20:00] VITALS: BP 152/68
--- NOTE | 2017-10-13 20:00 | NUR ---
RN NOTES PATIENT IN BED, ALERT AND ORIENTED X3, CALM, NO SOB, NO RESPIRATORY DISTRESS, DENIES ANY PAIN AT THIS TIME. RIGHT HAND SALINE LOCK IS PATENT AND SECURED WITH DRESSING. KEPT SAFE AND COMFORTABLE, CALL LIGHT WITHIN REACH.
[2017-10-13] MEDS: ENOXAPARIN SODIUM 40 MG/0.4 ML DISP.SYRIN SQ SCH (20:18)
--- NOTE | 2017-10-13 20:19 | NUR ---
RN NOTES REFUSED MUCINEX, PER PATIENT BEEN COUGHING DRY CAUSES CHEST PAIN. MEDICATION RETURNED.
[2017-10-13] MEDS: INSULIN DETEMIR 100 UNIT/ML CARTRIDGE SQ SCH (22:01)
[2017-10-14 04:00] VITALS: BP 164/72
--- NOTE | 2017-10-14 06:32 | NUR ---
RN NOTES PATIENT IS ALERT AND AWAKE, BRUSHING TEETH IN BED, NO SOB, NO DISTRESS, DENIES ANY PAIN AT THIS TIME, NO CHANGE OF CONDITION DURING SHIFT, COMPLIANT OF MEDICATION AND TX. NEEDS ATTENDED, CALL LIGHT WITHIN REACH..
[2017-10-14] MEDS: BLOOD SUGAR DIAGNOSTIC 1 EACH STRIP IN SCH ×2 (06:43→12:18)
[2017-10-14] MEDS: INSULIN REGULAR, HUMAN 100 UNIT/ML 3 ML VIAL SQ PRN (06:45)
[2017-10-14 08:00] VITALS: BP 151/70
[2017-10-14] MEDS: PANTOPRAZOLE 40 MG TABLET.DR PO SCH (08:38)
[2017-10-14] MEDS: FAMOTIDINE (20 MG) 20 MG TABLET PO SCH (08:38)
[2017-10-14] MEDS: DOCUSATE SODIUM 100 MG CAPSULE PO SCH (08:38)
[2017-10-14] MEDS: FOLIC ACID 1 MG TABLET PO SCH (08:38)
[2017-10-14] MEDS: ASPIRIN 81 MG TAB.CHEW PO SCH (08:38)
[2017-10-14] MEDS: AMLODIPINE BESYLATE 10 MG TABLET PO SCH ×2 (08:41→11:53)
[2017-10-14] MEDS: GUAIFENESIN LA 600 MG TABLET.SA PO SCH (08:41)
[2017-10-14] MEDS: LINAGLIPTIN 5 MG TABLET PO SCH (08:42)
--- NOTE | 2017-10-14 10:29 | NUR ---
RN OPENING NOTES RECEIVED PT. PT IS STABLE AND RESTING IN BED. NO S/S OF RESPIRATORY DISTRESS OR SOB. A/OX4, PT HAS NO C/O PAIN AT THIS TIME. IV ACCESS LOCATED ON RIGHT HAND 20 G, SL. SAFETY MEASURES IN PLACE, CALL LIGHT WITHIN REACH. WILL CONTINUE TO MONITOR.
[2017-10-14] MEDS: NITROGLYCERIN 0.4 MG/TAB BOTTLE SL PRN (10:47)
[2017-10-14 11:53] VITALS: BP 190/72
[2017-10-14] MEDS: CEFTRIAXONE 1 G in IV D5W 50 ML IV SCH (11:53)
[2017-10-14] MEDS ORDERED: Z GUARD REMEDY 2 OZ OINT TP PRN (16:00)
--- NOTE | 2017-10-14 18:52 | NUR ---
DISCHARGE NOTE PT DISCHARGED TO HOME. DISCHARGE INSTRUCTIONS AND PAPERWORK PROVIDED. PT VERBALIZES UNDERSTANDING OF D/C TEACHING. D/C INSTRUCTIONS AND BELONGINGS FORM SIGNED AND COPIED. COPIES PLACED IN PT'S CHART. IV ACCESS REMOVED, ID BAND REMOVED. NO WOUND PHOTOS NEEDED. NO NEW PRESCRIPTIONS GIVEN TO PT. PT LEFT IN PRIVATE TAXI TO HOME.
== END 2017-10-14 17:57 | disposition home health service (06) | DRG 292 ==
LOC: ER 19:41 → TELE 21:58 → MED 10-09 09:10
PROVIDERS: ADMIT Legal Medicine; ATTEND Legal Medicine
DX: I11.0 Hypertensive heart disease with heart failure (principal); E44.0 Moderate protein-calorie malnutrition; I95.9 Hypotension, unspecified; E87.5 Hyperkalemia; E88.09 Other disorders of plasma-protein metabolism, not elsewhere classified; E66.01 Morbid (severe) obesity due to excess calories; E11.9 Type 2 diabetes mellitus without complications; I50.23 Acute on chronic systolic (congestive) heart failure; J20.9 Acute bronchitis, unspecified; E78.5 Hyperlipidemia, unspecified; I25.10 Atherosclerotic heart disease of native coronary artery without angina pectoris; Z68.39 Body mass index [BMI] 39.0-39.9, adult; G47.33 Obstructive sleep apnea (adult) (pediatric); Z79.4 Long term (current) use of insulin; I25.2 Old myocardial infarction
CPT/HCPCS: 36415; 71010-TC; 80048-TC; 80053-TC; 80061-TC; 80076-TC; 82962-TC; 83735-TC; 83880; 84100-TC; 84484-TC; 85025-TC; 85730-TC; 87081-TC; J0696; J1650; J1815; J1940; J2405; J7030; J7040; J7060; Z7610

== ENCOUNTER 2017-10-23 21:02 | Inpatient (IN) | payer MEDICARE, MEDICAID ==
[~2017-10-23] VITALS: Ht 160 cm; Wt 101.2 kg
--- NOTE | 2017-10-23 21:14 | NUR ---
BB DAUGHTER; CHEST PAIN SINCE 8P WITH SOB. PT AOX3 PT STATES WITH COUGH AND CONGESTION SINCE YESTERDAY. RR EVEN AND UNLABORED. NO SOB NOTED. NAD NOTED. NO NVD AT THIS TIME. PT GOWNED AND PLACED ON MONITOR WAITING FOR MD HARTMANN. PT NOT DIAPHORETIC.
[2017-10-23] MEDS ORDERED: ASPIRIN 325 MG TABLET PO ONE (21:30)
[2017-10-23] MEDS ORDERED: NITROGLYCERIN PACKET 1 GM PACKET TD ONE (21:30)
[2017-10-23] MEDS ORDERED: ASPIRIN 325 MG TABLET ONE (21:36)
[2017-10-23] MEDS ORDERED: NITROGLYCERIN PACKET 1 GM PACKET ONE (21:36)
[2017-10-23 21:39] LABS: BASOPHILS # (AUTO) 0.1 /CMM (0.0-0.2); BASOPHILS % (AUTO) 0.6 % (0.0-2.0); EOSINOPHILS # (AUTO) 0.5 /CMM (0.0-0.7); EOSINOPHILS % (AUTO) 4.9 % (0.0-6.0); HEMATOCRIT 38 % (33-45); HEMOGLOBIN 12.3 g/dL (11.5-14.8); LYMPHOCYTES # (AUTO) 2.3 /CMM (0.8-4.8); LYMPHOCYTES % (AUTO) 24.6 % (20.0-44.0); MEAN CORPUSCULAR HEMOGLOBIN 28 PG (26.0-33.0); MEAN CORPUSCULAR HGB CONC 33 g/dl (31.0-36.0); MEAN CORPUSCULAR VOLUME 85 fL (82-100); MONOCYTES # (AUTO) 0.6 /CMM (0.1-1.30); MONOCYTES % (AUTO) 6.9 % (2.0-12.0); NEUTROPHILS # (AUTO) 5.8 /CMM (1.8-8.9); PLATELET COUNT (AUTO) 277 /CMM (150-450); RED BLOOD CELL COUNT(AUTO) 4.41 MIL/uL (4.0-5.2); WHITE BLOOD COUNT (AUTO) 9.3 K/uL (4.3-11.0)
[2017-10-23 21:48] LABS: CALCIUM, SERUM 8.6 mg/dL (8.5-10.1); CARBON DIOXIDE 29 mmol/L (21-32); CHLORIDE 103 mmol/L (98-107); CREATININE 1.2 mg/dL (0.6-1.3); GLUCOSE 178 mg/dL (74-106); POTASSIUM 4.5 mmol/L (3.5-5.1); SODIUM SERUM 138 mmol/L (136-145); UREA NITROGEN, BLOOD 24 mg/dL (7-18)
[2017-10-23 21:52] LABS: INR 0.9 (0.87-1.13); PROTHROMBIN TIME 9.4 SECS (9.5-12.7)
[2017-10-23 21:56] LABS: TROPONIN I 0.036 ng/mL (0.00-0.056)
[2017-10-23 22:01] LABS: ALANINE AMINOTRANSFERASE 14 U/L (12-78); ALKALINE PHOSPHATASE 88 U/L (46-116); ASPARTATE AMINOTRANSFERASE 13 U/L (15-37); B-TYPE NATRIURETIC PEPTIDE 1101 PG/ML (0-125); BILIRUBIN,TOTAL 0.2 mg/dL (0.2-1.0); TOTAL PROTEIN, SERUM 7.4 g/dL (6.4-8.2)
--- NOTE | 2017-10-23 22:11 | NUR ---
PER 'S ANSWERING SERVICE, CALL [facility] FOR ADMISSION
--- NOTE | 2017-10-23 22:12 | NUR ---
KEARA CUENCA, DELLA HARMON NP PRIMER EXPEDITOR AND DRIER
--- NOTE | 2017-10-23 22:22 | NUR ---
TELE 325-2
[2017-10-23] MEDS ORDERED: FUROSEMIDE 20 MG/2 ML VIAL IV ONE (22:30)
[2017-10-23] MEDS ORDERED: FUROSEMIDE 20 MG/2 ML VIAL ONE (22:48)
--- NOTE | 2017-10-23 23:06 | NUR ---
REPORT GIVEN TO ARNALDO QUINTANILLA
--- NOTE | 2017-10-23 23:09 | NUR ---
PT TRANSFERRED PER ACLS PROTOCOL.
--- NOTE | 2017-10-23 23:10 | NUR ---
CREATIVE ENGAGEMENT DIRECTOR NOTES ADMITTED PT ALERT,ORIENTED,VERBALLY RESPONSIVE, ON ROOM AIR,NO RESPIRATORY DISTRESS NOTED. DENIES ANY PAIN OR DISCOMFORT AT THIS TIME, NO CHEST PAIN. SINUS RHYTHM 66 IV SITE INTACT PATENT, NO S/SX OF INFILTRATION NOTED. CALL LIGHT WITHIN REACH.KEPT CLEAN AND COMFORTABLE.ATTENDED ALL NEEDS.WILL CONTINUE TO MONITOR ACCORDINGLY.
[2017-10-23 23:30] VITALS: BP 154/77
[2017-10-23] MEDS ORDERED: INSULIN GLARGINE, 100 UNIT/ML CARTRIDGE SQ SCH (23:30)
[2017-10-23] MEDS ORDERED: ACETAMINOPHEN 325 MG TABLET PO PRN (23:30)
[2017-10-23] MEDS ORDERED: MAGNESIUM HYDROXIDE 30 ML UDC PO PRN (23:30)
[2017-10-23] MEDS ORDERED: Z GUARD REMEDY 2 OZ OINT TP PRN (23:30)
[2017-10-23] MEDS ORDERED: ZOLPIDEM TARTRATE 5 MG TABLET PO PRN (23:30)
[2017-10-23] MEDS ORDERED: HYDROCODONE/APAP 5/325MG 1 EACH TABLET PO PRN (23:30)
[2017-10-23] MEDS ORDERED: MAG HYDROX/AL HYDROX/SIMETH 30 ML UDC PO PRN (23:30)
[2017-10-23] MEDS ORDERED: LOPERAMIDE HCL (2 MG CAP) 2 MG CAPSULE PO PRN (23:30)
[2017-10-23] MEDS ORDERED: MORPHINE SULFATE INJ 2 MG/ML DISP.SYRIN IV PRN (23:30)
[2017-10-23] MEDS ORDERED: DEXTROSE 50%-WATER 50 ML DISP.SYRIN IV PRN (23:30)
[2017-10-23] MEDS ORDERED: ONDANSETRON HCL/PF 4 MG/2 ML VIAL IVP PRN (23:30)
[2017-10-24] VITALS: BP 144/80
[2017-10-24] MEDS ORDERED: ENOXAPARIN SODIUM 40 MG/0.4 ML DISP.SYRIN SQ ONE (00:41)
[2017-10-24] MEDS: ENOXAPARIN SODIUM 40 MG/0.4 ML DISP.SYRIN SQ SCH ×2 (00:48→21:49)
[2017-10-24] MEDS: INSULIN REGULAR, HUMAN 100 UNIT/ML 3 ML VIAL SQ PRN ×3 (01:51→21:48)
[2017-10-24 04:00] VITALS: BP_SYST 148; BP_SYST 156; BP_DIAS 80; BP_DIAS 81
--- NOTE | 2017-10-24 06:16 | NUR ---
NATURAL GAS TREATING UNIT OPERATOR CLOSING NOTES PT IN BES AWAKE,ALERT,VERBALLY RESPONSIVE,DENIES ANY PAIN OR DISCOMFORT AT THIS TIME. ON O2 VIA N/C AT 2L/MIN,NO SOB NOTED. DENIES ANY PAIN OR DISCOMFORT AT THIS TIME.CALL LIGHT WITHIN REACH. KEPT CLEAN AND COMFORTABLE.ATTENDED ALL NEEDS.WILL MONITOR.
--- NOTE | 2017-10-24 07:33 | NUR ---
TRANSFORMATION LEAD OPENING NOTES: RECEIVED PATIENT AWAKE IN BED IN NO ACUTE SIGNS OF DISTRESS. A/O X4, SAME ABLE TO MAKE NEEDS KNOWN, DENIES PAIN OR DISCOMFORTS AT THIS TIME. ON SUPPLEMENTAL 02 VIA N/C @ 2LPM, BREATHING EVEN AND UNLABORED, NO SOB NOTED. PT ON TELE-MONITORING WITH CURRENT READING OF SR AND HR OF 62, NO C/O CHEST PAIN VOICED. IV ACCESS ON L WRIST INTACT AND PATENT. BED LOCKED AND IN LOWEST POSITION WITH SIDE-RAILS UP X2. CALL LIGHT WITHIN REACH. WILL CONTINUE TO MONITOR.
[2017-10-24] MEDS: BLOOD SUGAR DIAGNOSTIC 1 EACH STRIP IN SCH ×4 (07:42→21:46)
[2017-10-24 08:00] VITALS: BP 126/62
[2017-10-24 08:11] LABS: CHOLESTEROL 210 mg/dL (<200); HDL CHOLESTEROL 42 mg/dL (40-60); LDL 111 mg/dL (0-99); TRIGLYCERIDES 262 mg/dL (30-150)
[2017-10-24 08:13] LABS: CALCIUM, SERUM 8.7 mg/dL (8.5-10.1); CARBON DIOXIDE 32 mmol/L (21-32); CHLORIDE 106 mmol/L (98-107); CREATININE 1.3 mg/dL (0.6-1.3); GLUCOSE 125 mg/dL (74-106); MAGNESIUM 2.2 mg/dL (1.8-2.4); PHOSPHORUS 4.9 mg/dL (2.5-4.9); POTASSIUM 4.7 mmol/L (3.5-5.1); SODIUM SERUM 142 mmol/L (136-145); UREA NITROGEN, BLOOD 25 mg/dL (7-18)
[2017-10-24 08:14] LABS: BASOPHILS # (AUTO) 0.1 /CMM (0.0-0.2); BASOPHILS % (AUTO) 0.6 % (0.0-2.0); EOSINOPHILS # (AUTO) 0.4 /CMM (0.0-0.7); EOSINOPHILS % (AUTO) 4.9 % (0.0-6.0); HEMATOCRIT 37 % (33-45); HEMOGLOBIN 12.3 g/dL (11.5-14.8); LYMPHOCYTES % (AUTO) 23.4 % (20.0-44.0); MEAN CORPUSCULAR HEMOGLOBIN 29 PG (26.0-33.0); MEAN CORPUSCULAR HGB CONC 33 g/dl (31.0-36.0); MEAN CORPUSCULAR VOLUME 87 fL (82-100); MONOCYTES # (AUTO) 0.5 /CMM (0.1-1.30); MONOCYTES % (AUTO) 6.4 % (2.0-12.0); NEUTROPHILS # (AUTO) 5.5 /CMM (1.8-8.9); NEUTROPHILS % (AUTO) 64.7 % (43.0-81.0); PLATELET COUNT (AUTO) 254 /CMM (150-450); RDW COEFFICIENT OF VARIATION 13.6 (11.5-15.0); RED BLOOD CELL COUNT(AUTO) 4.29 MIL/uL (4.0-5.2); WHITE BLOOD COUNT (AUTO) 8.5 K/uL (4.3-11.0)
[2017-10-24] MEDS ORDERED: LOSARTAN POTASSIUM 25 MG TABLET PO SCH (09:00)
[2017-10-24] MEDS ORDERED: FUROSEMIDE 40 MG/4 ML VIAL IV SCH (09:00)
[2017-10-24] MEDS: CHOLECALCIFEROL 1,000 UNIT TABLET (VIT D3) PO SCH (10:00)
[2017-10-24] MEDS: ASPIRIN 81 MG TAB.CHEW PO SCH (10:01)
[2017-10-24] MEDS: AMLODIPINE BESYLATE 10 MG TABLET PO SCH (10:01)
[2017-10-24] MEDS: FOLIC ACID 1 MG TABLET PO SCH (10:01)
[2017-10-24] MEDS: LINAGLIPTIN 5 MG TABLET PO SCH (10:01)
[2017-10-24] MEDS: FUROSEMIDE 40 MG/4 ML VIAL IV SCH ×3 (10:40→17:40)
[2017-10-24] MEDS: VALSARTAN 80 MG TABLET PO SCH (10:41)
[2017-10-24 16:00] VITALS: BP 144/76
--- NOTE | 2017-10-24 18:58 | NUR ---
MS RN OPENING NOTES: PATIENT RESTING @ MODERATE HIGH BACK REST IN BED WITH FAMILY AT BEDSIDE AT THIS TIME.A/O X4. ABLE TO MAKE NEEDS KNOWN. ALL NEEDS AND CARE ATTENDED WELL. ON SUPPLEMENTAL 02 VIA N/C @ 2LPM, BREATHING EVEN AND UNLABORED, NO SOB NOTED. IV ACCESS ON L WRIST INTACT AND PATENT, FLUSHES FREELY. HOB KEPT ELEVATED. KEPT BED LOCKED AND IN LOWEST POSITION WITH SIDE-RAILS UP X2. CALL LIGHT WITHIN REACH. WILL ENDORSED TO SUPERVISOR MAINTENANCE AND CUSTODIANS NURSE FOR MIRELLA.
--- NOTE | 2017-10-24 19:55 | NUR ---
MS RN INITIAL NOTES PT IS IN BED RESTING, A/O X4 ABLE TO MAKE NEEDS KNOWN. BREATHING EVENLY AND UNLABORED ON RA. NO SIGNS OF SOB OR DISTRESS. IV ACCESS INTACT AND PATENT. VARICOSE VEINS ON LEFT LEG NOTED WITH TENDERNESS. DENIES PAIN AT THIS TIME. BED IS IN LOW AND LOCKED POSITION, CALL LIGHT WITHIN REACH. WILL CONTINUE TO MONITOR PT
[2017-10-24 20:00] VITALS: BP 132/62
[2017-10-24] MEDS: DOXAZOSIN MESYLATE (1 MG) 1 MG TABLET PO SCH (21:56)
[2017-10-24] MEDS: INSULIN DETEMIR 100 UNIT/ML CARTRIDGE SQ SCH (21:57)
[2017-10-25] MEDS: BLOOD SUGAR DIAGNOSTIC 1 EACH STRIP IN SCH (06:28)
[2017-10-25] MEDS: INSULIN REGULAR, HUMAN 100 UNIT/ML 3 ML VIAL SQ PRN (06:29)
--- NOTE | 2017-10-25 06:49 | NUR ---
MS RN CLOSING NOTES PT IS IN BED ALERT AND AWAKE, ABLE TO MAKE NEEDS KNOWN. DENIES PAIN. BREATHING EVENLY AND UNLABORED ON 2L NC, NO SIGNS OF SOB OR DISTRESS. NO ACUTE CHANGES THROUGHOUT THE SHIFT. ALL NEEDS WERE ANTICIPATED AND MET. BED IS IN LOW AND LOCKED POSITION, CALL LIGHT WITHIN REACH. WILL ENDORSE TO DAYSHIFT
--- NOTE | 2017-10-25 07:53 | NUR ---
MS/RN OPENING NOTE PATIENT IN BED IN STABLE CONDITION. A/O X 3. NO SINGS OF ACUTE DISTRESS. NO COMPLAIN OF PAIN OR DISCOMFORT. ALL NEEDS ATTENDED TO. CALL LIGHT WITHIN REACH. WILL CONTINUE TO MONITOR TO ENSURE SAFETY.
[2017-10-25 08:00] VITALS: BP 126/59
[2017-10-25 08:23] LABS: BASOPHILS % (AUTO) 0.6 % (0.0-2.0); EOSINOPHILS # (AUTO) 0.3 /CMM (0.0-0.7); EOSINOPHILS % (AUTO) 3.3 % (0.0-6.0); HEMATOCRIT 36 % (33-45); HEMOGLOBIN 12.1 g/dL (11.5-14.8); LYMPHOCYTES # (AUTO) 1.8 /CMM (0.8-4.8); LYMPHOCYTES % (AUTO) 23.7 % (20.0-44.0); MEAN CORPUSCULAR HEMOGLOBIN 29 PG (26.0-33.0); MEAN CORPUSCULAR HGB CONC 33 g/dl (31.0-36.0); MEAN CORPUSCULAR VOLUME 87 fL (82-100); MONOCYTES # (AUTO) 0.5 /CMM (0.1-1.30); MONOCYTES % (AUTO) 6.3 % (2.0-12.0); NEUTROPHILS % (AUTO) 66.1 % (43.0-81.0); PLATELET COUNT (AUTO) 247 /CMM (150-450); RDW COEFFICIENT OF VARIATION 13.6 (11.5-15.0); RED BLOOD CELL COUNT(AUTO) 4.18 MIL/uL (4.0-5.2); WHITE BLOOD COUNT (AUTO) 7.5 K/uL (4.3-11.0)
[2017-10-25] MEDS: FOLIC ACID 1 MG TABLET PO SCH (08:26)
[2017-10-25] MEDS: ASPIRIN 81 MG TAB.CHEW PO SCH (08:26)
[2017-10-25] MEDS: AMLODIPINE BESYLATE 10 MG TABLET PO SCH (08:26)
[2017-10-25] MEDS: LINAGLIPTIN 5 MG TABLET PO SCH (08:26)
[2017-10-25] MEDS: VALSARTAN 80 MG TABLET PO SCH (08:26)
[2017-10-25] MEDS: CHOLECALCIFEROL 1,000 UNIT TABLET (VIT D3) PO SCH (08:27)
[2017-10-25 09:22] LABS: ALANINE AMINOTRANSFERASE 18 U/L (12-78); ALBUMIN 2.9 g/dL (3.4-5.0); ALKALINE PHOSPHATASE 77 U/L (46-116); ASPARTATE AMINOTRANSFERASE 16 U/L (15-37); BILIRUBIN,TOTAL 0.3 mg/dL (0.2-1.0); CALCIUM, SERUM 8.8 mg/dL (8.5-10.1); CARBON DIOXIDE 36 mmol/L (21-32); CHLORIDE 101 mmol/L (98-107); CREATININE 1.5 mg/dL (0.6-1.3); GLUCOSE 179 mg/dL (74-106); MAGNESIUM 2.4 mg/dL (1.8-2.4); POTASSIUM 5.3 mmol/L (3.5-5.1); SODIUM SERUM 138 mmol/L (136-145); UREA NITROGEN, BLOOD 29 mg/dL (7-18)
--- NOTE | 2017-10-25 11:17 | NUR ---
MS/RN SEEN BY DR WOLF SEEN BY DR WOLF WITH CT ANGIO OF HEART PROCEDURE IN AM. CONSENT OBTAINED.
[2017-10-25 16:00] VITALS: BP 151/68
--- NOTE | 2017-10-25 18:35 | NUR ---
MS/RN CLOSING NOTE PATIENT IN BED IN STABLE CONDITION. A/O X 3. NO SIGNS OF ACUTE DISTRESS. NO COMPLAIN OF PAIN OR DISCOMFORT. ALL NEEDS ATTENDED TO. CALL LIGHT WITHIN REACH. WILL ENDORSE TO NEXT SHIFT FOR CONTINUITY OF CARE.
--- NOTE | 2017-10-25 19:10 | NUR ---
MS/ART INSTALLER; RECEIVED PT 'S REPORTS FROM THE DAY SHIFT RN FOR CONTINUITY OF CARE. AT THIS TIME PT IN BED AWAKE, ALERT AND ORIENTED. BREATHING NON LABORED . NOT IN DISTRESS. DENIES PAIN. HL ON LWA INTACT AND PATENT. HOB AT 45 DEGREES. PT REMINDED ON NPO AFTER MIDNIGHT . BED ON LOWER POSITION AND LOCKED FOR SAFETY. UPPER PART OF BED SIDE RAILS ARE UP FOR SAFETY.
[2017-10-25 20:00] VITALS: BP 133/65
--- NOTE | 2017-10-25 20:30 | NUR ---
MS/APPLICATIONS DEVELOPER; PRASHANTH GARDNER , CALLED ME AND SAID PT WANTS HER BS TO CHECKED. PT IS NOT ON ACCU CHECK ORDER. I JUST CHECKED PT'S BS PER PT'S REQUEST BS 176. PT MADE AWARE OF IT.
--- NOTE | 2017-10-25 21:10 | NUR ---
MS/POT PRESS OPERATOR; I PLACED A CALL TO DELLA HARMON NP TO CLARIFY IF PT IS STILL TO GIVE LEVEMIR INSULIN AT [facility]. I TOLD HER THAT PT'S ACCU CHECK IS DC SO WITH SLIDING SCALE. SO SHE TO HOLD LEVEMIR INSULIN . ALSO I NOTIFIED HER IF I HAVE TO GIVE THE PT WITH THE LOVENOX TONIGHT , PT IS GOING FOR CT ANGIOGRAM HEART WITH 3 D IMAGE TOMORROW AND SHE SAID TO GO AHEAD GIVE IT. ALSO INFORMED THE CHARGE NURSE.
[2017-10-25] MEDS: INSULIN DETEMIR 100 UNIT/ML CARTRIDGE SQ SCH (22:00)
[2017-10-25] MEDS: DOXAZOSIN MESYLATE (1 MG) 1 MG TABLET PO SCH (22:07)
[2017-10-25] MEDS: ENOXAPARIN SODIUM 40 MG/0.4 ML DISP.SYRIN SQ SCH (23:28)
[2017-10-26] VITALS (7 sets, daily range): BP systolic 108–158; BP diastolic 49–68
--- NOTE | 2017-10-26 03:30 | NUR ---
MS/AIRPORT MANAGER; PT IS AWAKE, I PLACED AGAIN O2 3L NC BACK. CHARGE NURSE ATTEMPTED TO PUT HL ON RAC # 18 BUT NO SUCCESS. SHE WILL CALL SOMEONE FROM OTHER UNIT TO PUT HL. BP ON LA 154/68, LA 64, O2 SAT ON 3L NC 98%.
--- NOTE | 2017-10-26 06:12 | NUR ---
MS/PSYCHOMETRICIAN; SLEPT FAIRLY. COUGHING NOTED NO SECRETIONS. DENIES PAIN. INCONTINENT OF URINE. NO BM. KEPT CLEAN AND DRY BY THE INVENTORY CONTROL CLERK. REPOSITIONED. STILL AWAITING FOR THE LAUNDRY OR DRY CLEANERS COUNTER CLERK TO START AN IV LINE ON THE RAC# 18. WILL ENDORSE TO THE DAY SHIFT NURSE. REMAINED ON NPO.
[2017-10-26 06:43] LABS: BASOPHILS % (AUTO) 0.6 % (0.0-2.0); EOSINOPHILS # (AUTO) 0.2 /CMM (0.0-0.7); EOSINOPHILS % (AUTO) 3.3 % (0.0-6.0); HEMATOCRIT 37 % (33-45); HEMOGLOBIN 12.1 g/dL (11.5-14.8); LYMPHOCYTES # (AUTO) 1.7 /CMM (0.8-4.8); LYMPHOCYTES % (AUTO) 23.3 % (20.0-44.0); MEAN CORPUSCULAR HEMOGLOBIN 28 PG (26.0-33.0); MEAN CORPUSCULAR HGB CONC 33 g/dl (31.0-36.0); MEAN CORPUSCULAR VOLUME 85 fL (82-100); MONOCYTES # (AUTO) 0.5 /CMM (0.1-1.30); MONOCYTES % (AUTO) 6.3 % (2.0-12.0); NEUTROPHILS % (AUTO) 66.5 % (43.0-81.0); PLATELET COUNT (AUTO) 250 /CMM (150-450); RED BLOOD CELL COUNT(AUTO) 4.29 MIL/uL (4.0-5.2); WHITE BLOOD COUNT (AUTO) 7.4 K/uL (4.3-11.0)
--- NOTE | 2017-10-26 06:45 | NUR ---
MS/DONALD; ER CHARGE NURSE LATA , CAME TO START IV LINE ON RAC BUT NO SUCCESS. HE DID START IV LINE ON LAC # 18. FAIZA PITTMAN MADE AWARE. ZAIN CALLED RADIOLOGY ABOUT THE IV LINE AND SHE SPOKE TO ANTONI AND HE SAID TO CALL BACK AT 0700.
--- NOTE | 2017-10-26 07:00 | NUR ---
MS/MEDICAL SURGICAL TECH; I CALLED RADIOLOGY AND SPOKE TO SACHA AND I TOLD HER UNABLE PUT IV LINE ON RAC BY THE ER CHARGE NURSE, INSTEAD IV LINE IS ON LAC # 18. SACHA SAID OK ANYWAY THE TECH WILL BE HERE IN AN HOUR. SO I INFORMED THE CHARGE NURSE ZAIN.
[2017-10-26 07:17] LABS: ALANINE AMINOTRANSFERASE 14 U/L (12-78); ALBUMIN 2.9 g/dL (3.4-5.0); ALKALINE PHOSPHATASE 76 U/L (46-116); ASPARTATE AMINOTRANSFERASE 12 U/L (15-37); BILIRUBIN,TOTAL 0.2 mg/dL (0.2-1.0); CALCIUM, SERUM 8.8 mg/dL (8.5-10.1); CARBON DIOXIDE 33 mmol/L (21-32); CHLORIDE 104 mmol/L (98-107); CREATININE 1.4 mg/dL (0.6-1.3); GLUCOSE 194 mg/dL (74-106); MAGNESIUM 2.5 mg/dL (1.8-2.4); PHOSPHORUS 4.8 mg/dL (2.5-4.9); POTASSIUM 5.1 mmol/L (3.5-5.1); SODIUM SERUM 141 mmol/L (136-145); TOTAL PROTEIN, SERUM 7.1 g/dL (6.4-8.2); UREA NITROGEN, BLOOD 36 mg/dL (7-18)
--- NOTE | 2017-10-26 07:20 | NUR ---
RN NOTES PT IS RESTING IN BED COMFORTABLY. PT ON 2L O2, RESPIRATIONS ARE EVEN AND UNLABORED. IV ON LAC INTACT AND PATENT. SAFETY MEASURES ARE IN PLACE, CALL LIGHT IS IN REACH. WILL CONTINUE TO MONITOR.
[2017-10-26] MEDS: LINAGLIPTIN 5 MG TABLET PO SCH (09:00)
[2017-10-26] MEDS: CHOLECALCIFEROL 1,000 UNIT TABLET (VIT D3) PO SCH (10:28)
[2017-10-26] MEDS: FOLIC ACID 1 MG TABLET PO SCH (10:28)
[2017-10-26] MEDS: ASPIRIN 81 MG TAB.CHEW PO SCH (10:29)
[2017-10-26] MEDS: AMLODIPINE BESYLATE 10 MG TABLET PO SCH (10:29)
[2017-10-26] MEDS: IV NS 0.9% 1,000 ML IV PRN ×2 (11:18→22:50)
[2017-10-26] MEDS ORDERED: CT SWABBABLE VALVE TRANS SET 1 EA INFUS.SET MC ONE (13:00)
[2017-10-26] MEDS ORDERED: IOHEXOL-350 100 ML VIAL IV ONE (13:00)
[2017-10-26] MEDS ORDERED: NITROGLYCERIN 0.4 MG/TAB BOTTLE SL PRN (13:00)
[2017-10-26] MEDS ORDERED: METOPROLOL TARTRATE INJ 5 MG/5 ML AMPUL IVP PRN (13:00)
[2017-10-26] MEDS ORDERED: IV NS 0.9% 250 ML IV ONE (13:01)
[2017-10-26] MEDS: INSULIN REGULAR, HUMAN 100 UNIT/ML 3 ML VIAL SQ PRN ×2 (17:14→21:05)
[2017-10-26] MEDS: BLOOD SUGAR DIAGNOSTIC 1 EACH STRIP IN SCH ×2 (17:17→21:06)
--- NOTE | 2017-10-26 18:38 | NUR ---
RN NOTES PT IS RESTING IN BED COMFORTABLY. PT ON 3L O2, RESPIRATIONS ARE EVEN AND UNLABORED. IV ON LAC INTACT AND RUNNING NS @ 125ML/HR. ALL MEDS WERE GIVEN ORDERED AND PT NEEDS MET. NO SIGNS OF DISTRESS NOTED, PT DENIES ANY PAIN. SAFETY MEASURES ARE IN PLACE, CALL LIGHT IS IN REACH. WILL ENDORSE TO MOLDED PARTS INSPECTOR RN FOR CONTINUITY OF CARE.
--- NOTE | 2017-10-26 19:27 | NUR ---
RN NOTES A/O X 4, IN BED RESTING COMFORTABLY PT IN STABLE CONDITION, NO S/S OF DISTRESS. SAFETY MEASURES ARE IN PLACE, CALL LIGHT IS IN REACH. WILL CONTINUE TO MONITOR.
[2017-10-26] MEDS: DOXAZOSIN MESYLATE (1 MG) 1 MG TABLET PO SCH (21:06)
[2017-10-26] MEDS: INSULIN DETEMIR 100 UNIT/ML CARTRIDGE SQ SCH (21:06)
[2017-10-26] MEDS: ENOXAPARIN SODIUM 40 MG/0.4 ML DISP.SYRIN SQ SCH (22:51)
--- NOTE | 2017-10-26 23:11 | NUR ---
SMITA 25 UNITS NON ADMINISTRATION DESPITE EXPLAINING RISKS AND BENEFITS OFFERED 3 TIMES STILL REFUSED TANBARK PEELER FAUSTINO SPINNING FRAME CHANGER MADE AWARE.
[2017-10-27] MEDS: INSULIN REGULAR, HUMAN 100 UNIT/ML 3 ML VIAL SQ PRN ×3 (05:15→17:32)
[2017-10-27] MEDS: BLOOD SUGAR DIAGNOSTIC 1 EACH STRIP IN SCH ×3 (05:15→17:30)
--- NOTE | 2017-10-27 06:29 | NUR ---
MS RN CLOSING NOTES COMFORTABLY ASLEEP IN BED AND EASILY AWAKEN, ON 2LPM VIA NC 02 SAT 95% RESPIRATIONS EVEN AND UNLABORED. NOT IN S/S DISTRESS. STABLE CONDITION. KEPT CLEAN AND DRY AND COMFORTABLE, GOOD SKIN CARE PROVIDED. ALL NURSING CARE RENDERED. NEEDS ATTENDED AND ANTICIPATED, FREQUENT VISUAL CHECK DONE FOR SAFETY EVERY 2 HOURS. ASSISTED REPOSITION Q2H. ON LOW BED AT ALL TIMES TO ENSURE SAFETY. SAFE HAZARD FREE ENVIRONMENT PROVIDED. CALL LIGHT WITHIN EASY TO REACH. WILL ENDORSE NEXT SHIFT CONTINUITY OF CARE.
--- NOTE | 2017-10-27 07:30 | NUR ---
AM RN NOTE Received patient awake, A/O X4 verbally responsive. No acute distress noted. IV site intact and patent. Will continue to monitor and call light with in easy reach.
[2017-10-27 08:00] VITALS: BP 128/56
[2017-10-27] MEDS: FOLIC ACID 1 MG TABLET PO SCH (08:19)
[2017-10-27] MEDS: LINAGLIPTIN 5 MG TABLET PO SCH (08:19)
[2017-10-27] MEDS: ASPIRIN 81 MG TAB.CHEW PO SCH (08:19)
[2017-10-27] MEDS: CHOLECALCIFEROL 1,000 UNIT TABLET (VIT D3) PO SCH (08:19)
[2017-10-27] MEDS: AMLODIPINE BESYLATE 10 MG TABLET PO SCH (08:19)
[2017-10-27 09:33] LABS: CALCIUM, SERUM 8.4 mg/dL (8.5-10.1); CARBON DIOXIDE 30 mmol/L (21-32); CHLORIDE 104 mmol/L (98-107); CREATININE 1.2 mg/dL (0.6-1.3); GLUCOSE 170 mg/dL (74-106); POTASSIUM 5.1 mmol/L (3.5-5.1); SODIUM SERUM 137 mmol/L (136-145); UREA NITROGEN, BLOOD 34 mg/dL (7-18)
[2017-10-27 16:00] VITALS: BP 158/71
--- NOTE | 2017-10-27 16:49 | NUR ---
AM RN NOTE Discharge order was given by Luis Rodriguez NP noted and carried out. Pt aware. Called Daughter (Lilian) and per daughter, she will come after 6 pm today to pick up driver patient. Skin pictures taken and placed in chart. Will continue to monitor.
--- NOTE | 2017-10-27 18:47 | NUR ---
AM RN NOTE Patient awake, no acute distress noted. Discharge paperwork done and awaiting for daughter. All needs met and attended in timely manner. HL removed per patient's request. Will continue to monitor and endorse care to next shift.
--- NOTE | 2017-10-27 19:00 | NUR ---
AM RN NOTE Pt awake, A/O X4 verbally responsive. Denies any pain at this time. Discharge instructions on medications and teachings given to patient and daughter (Lilian) both verbalize understanding. Belongings endorsed and ID band removed. Pt discharged/ left unit at this time via w/c as accompanied by 1 PIPE FINISHER, daughter and son-in-law to downstairs.
== END 2017-10-27 19:00 | disposition home or self-care (01) | DRG 291 ==
LOC: ER 21:02 → TELE 22:32 → MED 10-24 10:50
PROVIDERS: ADMIT Nurse Practitioner Acute Care; ATTEND Nurse Practitioner Acute Care
DX: I11.0 Hypertensive heart disease with heart failure (principal); N17.0 Acute kidney failure with tubular necrosis; E44.1 Mild protein-calorie malnutrition; D68.59 Other primary thrombophilia; E66.01 Morbid (severe) obesity due to excess calories; E87.5 Hyperkalemia; E88.09 Other disorders of plasma-protein metabolism, not elsewhere classified; E11.9 Type 2 diabetes mellitus without complications; E78.5 Hyperlipidemia, unspecified; I25.10 Atherosclerotic heart disease of native coronary artery without angina pectoris; Z79.4 Long term (current) use of insulin; Z68.39 Body mass index [BMI] 39.0-39.9, adult; R07.9 Chest pain, unspecified; T50.1X5A Adverse effect of loop [high-ceiling] diuretics, initial encounter; Y92.89 Other specified places as the place of occurrence of the external cause; Z91.19 Patient's noncompliance with other medical treatment and regimen
CPT/HCPCS: 36415; 71010-TC; 75574; 80048-TC; 80053-TC; 80061-TC; 80076-TC; 82962-TC; 83735-TC; 83880; 84100-TC; 84484-TC; 85025-TC; 85730-TC; 86850-TC; 87081-TC; J1650; J1815; J1940; J2270; J2405; J3490; J7030; J7050; Q9967; Z7610

== ENCOUNTER 2020-08-02 14:53 | Inpatient (IN) | payer MEDICARE, OTHER ==
[~2020-08-02] VITALS: Ht 157.5 cm; Wt 88.1 kg
[~2020-08-02 14:53] MED LIST changes: -AMLO10TA2 PO; +AMLO10TA7 PO; +HYDR-4354 PO; -HYDR-548 PO; -LOSA25TA13 PO; +LOSA25TA27 PO
--- NOTE | 2020-08-02 14:53 | NUR ---
PT BIBRA FROM HOME C/O BILATERAL LOWER LEG SWELLING. PT IS AAOX3, NOT IN RESPIRATORY DISTRESS, HOOKED TO GLOBAL ANALYTICS HEAD, KEPT RESTED AND COMFORTABLE. WILL CONTINUE TO MONITOR.
--- NOTE | 2020-08-02 15:00 | NUR ---
SEEN AND EXAMINED BY .
--- NOTE | 2020-08-02 15:02 | NUR ---
IV LINE ESTABLISHED BLOOD DRAWN AND SENT TO LAB.
[2020-08-02 15:20] LABS: BASOPHILS # (AUTO) 0.1 /CMM (0.0-0.2); BASOPHILS % (AUTO) 0.9 % (0.0-2.0); EOSINOPHILS % (AUTO) 3.4 % (0.0-6.0); HEMATOCRIT 35 % (33-45); HEMOGLOBIN 11.4 g/dL (11.5-14.8); LYMPHOCYTES # (AUTO) 1.7 /CMM (0.8-4.8); LYMPHOCYTES % (AUTO) 25.1 % (20.0-44.0); MEAN CORPUSCULAR HGB CONC 33 g/dl (31.0-36.0); MEAN CORPUSCULAR VOLUME 89 fL (82-100); MONOCYTES # (AUTO) 0.5 /CMM (0.1-1.30); MONOCYTES % (AUTO) 7.8 % (2.0-12.0); NEUTROPHILS # (AUTO) 4.4 /CMM (1.8-8.9); NEUTROPHILS % (AUTO) 62.8 % (43.0-81.0); PLATELET COUNT (AUTO) 228 /CMM (150-450); RED BLOOD CELL COUNT(AUTO) 3.88 MIL/uL (4.0-5.2)
[2020-08-02 15:59] LABS: CALCIUM, SERUM 8.6 mg/dL (8.5-10.1); CARBON DIOXIDE 30 mmol/L (21-32); CHLORIDE 104 mmol/L (98-107); CREATININE 1.4 mg/dL (0.6-1.3); GLUCOSE 209 mg/dL (74-106); POTASSIUM 4.1 mmol/L (3.5-5.1); SODIUM SERUM 141 mmol/L (136-145); UREA NITROGEN, BLOOD 25 mg/dL (7-18)
[2020-08-02] MEDS ORDERED: ACETAMINOPHEN ES 500 MG TABLET PO ONE (16:00)
[2020-08-02 16:15] LABS: ALANINE AMINOTRANSFERASE 15 U/L (12-78); ALBUMIN 3.3 g/dL (3.4-5.0); ALKALINE PHOSPHATASE 67 U/L (46-116); ASPARTATE AMINOTRANSFERASE 17 U/L (15-37); B-TYPE NATRIURETIC PEPTIDE 6590 PG/ML (0-125); BILIRUBIN,DIRECT 0.1 mg/dL (0.0-0.2); BILIRUBIN,TOTAL 0.4 mg/dL (0.2-1.0); TOTAL PROTEIN, SERUM 7.1 g/dL (6.4-8.2)
[2020-08-02] MEDS ORDERED: CLON0.1T PO (16:15)
[2020-08-02] MEDS ORDERED: INSU100V7 SQ (16:15)
[2020-08-02] MEDS ORDERED: HYDR-4354 PO (16:15)
[2020-08-02] MEDS ORDERED: TRIA80CR12 TP (16:15)
[2020-08-02] MEDS ORDERED: ALBU1.257 IH (16:15)
[2020-08-02] MEDS ORDERED: FURO-144 PO (16:15)
[2020-08-02] MEDS ORDERED: DICL100G16 TP (16:15)
[2020-08-02] MEDS ORDERED: CEPH500C2 PO (16:15)
[2020-08-02] MEDS ORDERED: BUSP5TAB3 PO (16:15)
[2020-08-02] MEDS ORDERED: ERGO500014 PO (16:15)
[2020-08-02] MEDS ORDERED: FUROSEMIDE 40 MG/4 ML VIAL IV ONE (16:30)
[2020-08-02] MEDS ORDERED: FUROSEMIDE 40 MG/4 ML VIAL ONE (16:32)
--- NOTE | 2020-08-02 16:42 | NUR ---
MOVE SHEET SUBMITTED
--- NOTE | 2020-08-02 16:53 | NUR ---
COVID SPECIMEN OBTAINED AND SENT TO LAB.
--- NOTE | 2020-08-02 16:55 | NUR ---
CALLED DR. MENDEZ [phone] TO BE PAGED.
[2020-08-02] MEDS ORDERED: NITROGLYCERIN PACKET 1 GM PACKET TD ONE (17:30)
[2020-08-02] MEDS ORDERED: NITROGLYCERIN PACKET 1 GM PACKET ONE (17:35)
--- NOTE | 2020-08-02 18:09 | NUR ---
SPOKED TO [employer] FOR COVID ANTIGEN RESULT. PER CLS WILL CALL BACK IN 10 MINS.
--- NOTE | 2020-08-02 18:15 | NUR ---
Carly rodriguez in [facility] - 08/02/20 at 1825 by ISABEL SPOKED TO FRANCIS SLAB LIFTING SUPERVISOR WILL CALL BACK.
--- NOTE | 2020-08-02 18:28 | NUR ---
CALLED HOUSE SUP FOR TELE BED.
--- NOTE | 2020-08-02 19:07 | NUR ---
REPORT GIVEN TO ARNALDO MARSHALL FOR MIRELLA.
[2020-08-02] MEDS ORDERED: HYDROCODONE/APAP 10/325MG TABLET PO PRN (19:30)
[2020-08-02] MEDS ORDERED: busPIRone 5 MG TABLET PO PRN (19:30)
--- NOTE | 2020-08-02 20:03 | NUR ---
REPROT GIVEN TO NANCY MCINTOSH FOR MIRELLA
--- NOTE | 2020-08-02 20:19 | NUR ---
PT TRANSFERED PER ACLS PROTOCOL
--- NOTE | 2020-08-02 20:30 | NUR ---
RN ADMITTING NOTES PATIENT RECEIVED FROM ER VIA GURNEY ACCOMPANIED BY ER STAFF. PATIENT A/O X 4. STABLE ON RA WITH BREATHING EVEN AND UNLABORED, NO SOB NOTED. NO SIGNS OF ACUTE DISTRESS. NO COMPLAINTS OF PAIN OR DISCOMFORT. VITALS TAKEN BP 182/ 77 HR 61 RR 20 T 97.7 O2SAT 95%. SKIN ASSESSMENT DONE. BELONGINGS ACCOUNTED FOR. TELE MONITORS PLACED. IV LOCATED ON R HAND #18. SAFETY PRECAUTIONS IN PLACE WITH BED IN LOWEST POSITION, CALL LIGHT WITHIN REACH, BREAK ON, SIDE RAILS UP. WILL CONTINUE TO MONITOR THROUGHOUT THE NIGHT.
[2020-08-02 20:50] VITALS: BP 182/77
--- NOTE | 2020-08-02 20:50 | NUR ---
RN NOTES WRITTEN ORDERS FROM MD MENDEZ CARRIED OUT.
[2020-08-02] MEDS ORDERED: ENOXAPARIN SODIUM 30 MG/0.3 ML DISP.SYRIN SQ SCH (21:00)
[2020-08-02] MEDS: FUROSEMIDE 40 MG/4 ML VIAL IV SCH (21:00)
[2020-08-02] MEDS ORDERED: DEXTROSE 50%-WATER 50 ML DISP.SYRIN IV PRN ×2 (21:00)
[2020-08-02] MEDS: CLONIDINE HCL 0.1 MG TABLET PO PRN (21:01)
--- NOTE | 2020-08-02 21:05 | NUR ---
RN NOTES PRN 0.1 MG CLONIDINE ADMINISTERED. BP 182/ 77. WILL CONTINUE TO MONITOR.
--- NOTE | 2020-08-02 21:48 | NUR ---
RN NOTES HELD SCHEDULED LASIX 4 MG FOR 2100 SCHEDULED FOR EVERY 12 HOURS. LASIX 40 MG AND NITRO 1GM WAS ADMINISTERED IN THE ER PREVIOUSLY AROUND 1630- 1740. CLONIDINE WAS ALSO GIVEN UPON ARRIVAL TO UNIT DUE TO HIGH BLOOD PRESSURE. PATIENT EXPERIENCING NOT SOB AT THE MOMENT. WILL CONTINUE TO MONITOR.
[2020-08-02] MEDS ORDERED: BLOOD SUGAR DIAGNOSTIC 1 EACH STRIP IN SCH (22:00)
[2020-08-02] MEDS: BLOOD SUGAR DIAGNOSTIC 1 EACH STRIP IN SCH (22:06)
[2020-08-03] VITALS: BP 136/56
[2020-08-03] MEDS: NITROGLYCERIN PACKET 1 GM PACKET TOP SCH ×4 (00:08→17:18)
[2020-08-03 04:00] VITALS: BP 145/66
[2020-08-03] MEDS: BLOOD SUGAR DIAGNOSTIC 1 EACH STRIP IN SCH ×4 (06:38→21:56)
[2020-08-03 06:48] LABS: BASOPHILS # (AUTO) 0.1 /CMM (0.0-0.2); BASOPHILS % (AUTO) 1.1 % (0.0-2.0); EOSINOPHILS % (AUTO) 5.4 % (0.0-6.0); HEMATOCRIT 32 % (33-45); HEMOGLOBIN 10.4 g/dL (11.5-14.8); LYMPHOCYTES # (AUTO) 1.5 /CMM (0.8-4.8); LYMPHOCYTES % (AUTO) 27.4 % (20.0-44.0); MEAN CORPUSCULAR HGB CONC 33 g/dl (31.0-36.0); MEAN CORPUSCULAR VOLUME 88 fL (82-100); MONOCYTES # (AUTO) 0.5 /CMM (0.1-1.30); MONOCYTES % (AUTO) 8.3 % (2.0-12.0); NEUTROPHILS # (AUTO) 3.3 /CMM (1.8-8.9); NEUTROPHILS % (AUTO) 57.8 % (43.0-81.0); PLATELET COUNT (AUTO) 216 /CMM (150-450); RED BLOOD CELL COUNT(AUTO) 3.57 MIL/uL (4.0-5.2); WHITE BLOOD COUNT (AUTO) 5.6 K/uL (4.3-11.0)
--- NOTE | 2020-08-03 06:53 | NUR ---
RN CLOSING NOTES PATIENT IN BED RESTING A/O X 4. STABLE ON RA WITH BREATHING EVEN AND UNLABORED, NO SOB NOTED. NO SIGNS OF ACUTE DISTRESS. NO COMPLAINTS OF PAIN OR DISCOMFORT AT THE MOMENT. TELE MONITOR READING SR. IV LOCATED ON R HAND #18 SL. SAFETY PRECAUTIONS IN PLACE WITH BED IN LOWEST POSITION, CALL LIGHT WITHIN REACH, BREAKS ON, SIDE RAILS UP. ALL NEEDS ATTENDED TO. WILL ENDORSE TO ONCOMING SHIFT ABOUT MIRELLA.
[2020-08-03 07:03] LABS: CALCIUM, SERUM 8.5 mg/dL (8.5-10.1); CREATININE 1.1 mg/dL (0.6-1.3); POTASSIUM 4.1 mmol/L (3.5-5.1)
--- NOTE | 2020-08-03 07:30 | NUR ---
RN Opening Note Received patient in bed, AO x 4 able to responds all stimuli, pt c/o headache and given [place] 5/325mg. Respiratory even and unlabored on room air, no distress observed, HR 55-58 with sinus from monitor. Skin is warm to touch, keep clean/dry, intact IV site on right hand G18 with SL. Kept locked bed with lowest position, bed alarm on all times for safety, and elevated HOB for ensure airway. Call light within reach, will continue to monitor.
[2020-08-03] MEDS: HYDROCODONE/APAP 5/325MG TABLET PO PRN (08:10)
[2020-08-03] MEDS ORDERED: BLOOD SUGAR DIAGNOSTIC 1 EACH STRIP IN SCH (09:00)
[2020-08-03] MEDS ORDERED: ASPIRIN 81 MG TAB.CHEW PO SCH (09:00)
[2020-08-03] MEDS ORDERED: ERGOCALCIFEROL (VITAMIN D 2) 50,000 UNIT CAPSULE PO SCH ×2 (09:00→10:00)
[2020-08-03] MEDS: INSULIN GLARGINE, 100 UNIT/ML CARTRIDGE SQ SCH ×2 (09:00→17:26)
[2020-08-03] MEDS: FUROSEMIDE 40 MG/4 ML VIAL IV SCH ×4 (09:03→21:18)
[2020-08-03] MEDS: ASPIRIN 81 MG TAB.CHEW PO SCH (09:03)
--- NOTE | 2020-08-03 09:10 | NUR ---
Patient does not eat BKF this morning, will hold Latus at this time.
[2020-08-03] MEDS: VALSARTAN 80 MG TABLET PO SCH (10:34)
[2020-08-03 11:17] LABS: PHOSPHORUS 4.4 mg/dL (2.5-4.9)
[2020-08-03 11:29] LABS: THYROID STIMULATING HORMONE 2.024 uIU/mL (0.358-3.74)
--- NOTE | 2020-08-03 18:30 | NUR ---
RN Closing Note Patient in bed resting comfortably, does no c/o pain or discomfort at this time, skin is warm to touch keep clean/dry, intact IV site on right hand g 18 with H. Respiratory even and unlabored with oxygen at 2LPM, O2sat 97%. Kept locked bed with lowest position and bed alarm is on all times, call light within reach, will endorse operation shift supervisor.
--- NOTE | 2020-08-03 19:00 | NUR ---
RN OPENING NOTES Received patient awake on bed. Denies any discomfort at this time. Kept on bed clean, dry and comfortable. On fall and aspiration precautions. Will continue to monitor accordingly.
[2020-08-03 20:00] VITALS: BP 157/54
[2020-08-03 20:17] VITALS: BP 157/54
[2020-08-03] MEDS: ENOXAPARIN SODIUM 40 MG/0.4 ML DISP.SYRIN SQ SCH (21:18)
[2020-08-04] MEDS: NITROGLYCERIN PACKET 1 GM PACKET TOP SCH ×4 (00:13→17:08)
[2020-08-04] MEDS: HYDROCODONE/APAP 5/325MG TABLET PO PRN ×2 (01:32→05:35)
[2020-08-04] MEDS: INSULIN REGULAR, HUMAN 100 UNIT/ML 3 ML VIAL SQ PRN ×3 (06:39→17:07)
[2020-08-04] MEDS: BLOOD SUGAR DIAGNOSTIC 1 EACH STRIP IN SCH ×4 (06:57→22:19)
[2020-08-04 07:00] LABS: BASOPHILS # (AUTO) 0.1 /CMM (0.0-0.2); BASOPHILS % (AUTO) 1.2 % (0.0-2.0); EOSINOPHILS % (AUTO) 3.9 % (0.0-6.0); HEMATOCRIT 33 % (33-45); HEMOGLOBIN 10.8 g/dL (11.5-14.8); LYMPHOCYTES # (AUTO) 1.8 /CMM (0.8-4.8); MEAN CORPUSCULAR HGB CONC 33 g/dl (31.0-36.0); MEAN CORPUSCULAR VOLUME 87 fL (82-100); MONOCYTES # (AUTO) 0.5 /CMM (0.1-1.30); MONOCYTES % (AUTO) 8.2 % (2.0-12.0); NEUTROPHILS % (AUTO) 59.7 % (43.0-81.0); PLATELET COUNT (AUTO) 221 /CMM (150-450); RED BLOOD CELL COUNT(AUTO) 3.77 MIL/uL (4.0-5.2); WHITE BLOOD COUNT (AUTO) 6.7 K/uL (4.3-11.0)
--- NOTE | 2020-08-04 07:00 | NUR ---
RN CLOSING NOTES Pt awake on bed, on RA. Medicated for pain, noted effective. All nursing needs attended. Due meds given as ordered. Kept on bed clean, dry and comfortable. Endorsed.
--- NOTE | 2020-08-04 07:10 | NUR ---
MS/RN - Assessment Patient in bed, awake, A/O x 4, denies chest pain, stable on room air, no complaints overnight. Saline lock on the right hand is patent and intact with no signs of infiltration. Skin is intact. All needs attended. labs reviewed, no critical results seen. Fall precautions maintained. Will continue with current medical management.
[2020-08-04 07:29] LABS: BILIRUBIN,TOTAL 0.5 mg/dL (0.2-1.0); CALCIUM, SERUM 8.4 mg/dL (8.5-10.1); CREATININE 1.3 mg/dL (0.6-1.3); MAGNESIUM 1.9 mg/dL (1.8-2.4); PHOSPHORUS 4.4 mg/dL (2.5-4.9); TOTAL PROTEIN, SERUM 6.5 g/dL (6.4-8.2)
[2020-08-04 08:00] VITALS: BP 125/62
[2020-08-04] MEDS: VALSARTAN 80 MG TABLET PO SCH (08:26)
[2020-08-04] MEDS: CHOLECALCIFEROL 1,000 UNIT TABLET (VIT D3) PO SCH (08:26)
[2020-08-04] MEDS: ASPIRIN 81 MG TAB.CHEW PO SCH (08:27)
[2020-08-04] MEDS: INSULIN GLARGINE, 100 UNIT/ML CARTRIDGE SQ SCH ×2 (08:51→16:53)
--- NOTE | 2020-08-04 09:27 | NUR ---
RT NOTE PATIENT FOUND ON ROOM AIR SPO2 93% , HR 53, NO SOB OBSERVE, WILL CONTINUE TO MONITOR
[2020-08-04 16:00] VITALS: BP 151/73
--- NOTE | 2020-08-04 19:00 | NUR ---
MS/RN - End of shift summary No significant change in condition seen, breathing better, BLE swelling improved. All needs attended. Will endorse to night RN for continuity of care.
--- NOTE | 2020-08-04 19:30 | NUR ---
MS/RN OPENING NOTES RECEIVED PATIENT IN BED RESTING. PATIENT IS ALERT AND ORIENTED X 4. PATIENT IS TOLERATING RA WELL. NO SIGNS OF SOB OR RESPIRATORY OR SOB NOTED. PATIENT HAS IV ACCESS ON RIGHT HAND #18 G INTACT FLUSHING WELL. PATIENT STATES NO PAIN AT THIS TIME. SAFETY MEASURES ARE IN PLACE, BED IS LOCKED AND PLACED IN THE LOW POSITION, SIDE RAILS UP X 2. CALL LIGHT IS WITHIN REACH. WILL CONTINUE TO MONITOR THROUGH OUT SHIFT.
[2020-08-04 20:00] VITALS: BP 160/70
[2020-08-04] MEDS: ENOXAPARIN SODIUM 40 MG/0.4 ML DISP.SYRIN SQ SCH (21:29)
[2020-08-05] VITALS (7 sets, daily range): BP systolic 127–182; BP diastolic 58–75
[2020-08-05] MEDS: NITROGLYCERIN PACKET 1 GM PACKET TOP SCH ×5 (00:31→23:23)
[2020-08-05] MEDS: BLOOD SUGAR DIAGNOSTIC 1 EACH STRIP IN SCH ×4 (06:24→21:19)
[2020-08-05 06:26] LABS: BASOPHILS # (AUTO) 0.1 /CMM (0.0-0.2); BASOPHILS % (AUTO) 0.9 % (0.0-2.0); EOSINOPHILS % (AUTO) 3.8 % (0.0-6.0); HEMATOCRIT 36 % (33-45); HEMOGLOBIN 11.6 g/dL (11.5-14.8); LYMPHOCYTES # (AUTO) 2.1 /CMM (0.8-4.8); LYMPHOCYTES % (AUTO) 31.5 % (20.0-44.0); MEAN CORPUSCULAR HGB CONC 32 g/dl (31.0-36.0); MEAN CORPUSCULAR VOLUME 89 fL (82-100); MONOCYTES # (AUTO) 0.5 /CMM (0.1-1.30); MONOCYTES % (AUTO) 7.7 % (2.0-12.0); NEUTROPHILS # (AUTO) 3.8 /CMM (1.8-8.9); NEUTROPHILS % (AUTO) 56.1 % (43.0-81.0); PLATELET COUNT (AUTO) 243 /CMM (150-450); RED BLOOD CELL COUNT(AUTO) 4.03 MIL/uL (4.0-5.2); WHITE BLOOD COUNT (AUTO) 6.8 K/uL (4.3-11.0)
--- NOTE | 2020-08-05 06:35 | NUR ---
MS/RN CLOSING NOTES PATIENT IN BED RESTING. PATIENT IS ALERT AND ORIENTED X 4. PATIENT IS TOLERATING RA WELL. NO SIGNS OF SOB OR RESPIRATORY OR SOB NOTED. PATIENT HAS IV ACCESS ON RIGHT HAND #18 G INTACT FLUSHING WELL. PATIENT STATES NO PAIN AT THIS TIME. ALL PATIENTS NEEDS HAVE BEEN MET. SAFETY MEASURES ARE IN PLACE, BED IS LOCKED AND PLACED IN THE LOW POSITION, SIDE RAILS UP X 2. CALL LIGHT IS WITHIN REACH. WILL ENDORSE CARE TO DAY SHIFT.
[2020-08-05 07:01] LABS: CALCIUM, SERUM 8.6 mg/dL (8.5-10.1); CREATININE 1.3 mg/dL (0.6-1.3); MAGNESIUM 2.2 mg/dL (1.8-2.4); POTASSIUM 4.5 mmol/L (3.5-5.1)
--- NOTE | 2020-08-05 07:30 | NUR ---
MS/RN - Assessment Patient in bed, awake, A/O x 4, denies chest pain, stable on room air, c/o non-productive cough, no apparent distress seen. Saline lock on the right hand is patent and intact with no signs of infiltration. All needs attended. Labs reviewed, no critical results noted. Fall and aspiration precautions maintained. Will continue with current medical management.
[2020-08-05] MEDS: INSULIN GLARGINE, 100 UNIT/ML CARTRIDGE SQ SCH ×2 (08:23→17:00)
[2020-08-05] MEDS: CHOLECALCIFEROL 1,000 UNIT TABLET (VIT D3) PO SCH (08:27)
[2020-08-05] MEDS: VALSARTAN 80 MG TABLET PO SCH (08:28)
[2020-08-05] MEDS: CLONIDINE HCL 0.1 MG TABLET PO PRN (08:28)
[2020-08-05] MEDS: HYDROCODONE/APAP 5/325MG TABLET PO PRN ×2 (08:28→08:45)
[2020-08-05] MEDS: ASPIRIN 81 MG TAB.CHEW PO SCH (08:29)
[2020-08-05] MEDS: ACETAMINOPHEN 325 MG TABLET PO PRN ×2 (08:42→18:24)
[2020-08-05] MEDS: INSULIN REGULAR, HUMAN 100 UNIT/ML 3 ML VIAL SQ PRN ×2 (11:36→21:20)
--- NOTE | 2020-08-05 18:46 | NUR ---
MS RN CLOSING NOTES PATIENT RESTING IN BED COMFORTABLY.A/O X 4. TOLERATING RA WELL. NO SIGNS OF SOB OR RESPIRATORY DISTRESS NOTED, PATIENT WITH IV ACCESS TO RIGHT HAND #18 G PATENT AND INTACT, FLUSHING WELL. PATIENT C/O HOUGH AND LT SHOULDER PAIN S/P REPOSITIONING LEVEL 5/10,TYLENOL 650MG WAS ADMINISTERED. BED IS LOCKED AND PLACED IN THE LOW POSITION WITH SIDE RAILS UP X 2. CALL LIGHT IS WITHIN REACH. ALL SAFETY MEASURES IN PLACE, WILL ENDORSE CARE TO SERGEANT OF OFFICERS.
--- NOTE | 2020-08-05 20:42 | NUR ---
planning rn: received report form day cheyanne garcia. pt a/o x4, on ra respiration even and unlabored, denies any sob or chest pain. iv access on right hand g 18 patent and flushing well, on hl. pt on daily weight with strict i&o. assisted pt to bed side commode, voided freely. spo2 93% on ra. s/p shoulder xr and ct rigth shoulder d/t noticeable right shoulder swelling, tenderness upon palpation and limited movement on right shoulder/arm, + sensation with good capillary refill, radial pulses (right hand/wrist) palpable and intact. discussed plan of care to pt, pt agree and understand. safety precautions for fall initiated, call light in reach, will continue monitoring pt.
[2020-08-05] MEDS: ENOXAPARIN SODIUM 40 MG/0.4 ML DISP.SYRIN SQ SCH (21:21)
[2020-08-06 05:13] VITALS: BP 142/58
[2020-08-06] MEDS: NITROGLYCERIN PACKET 1 GM PACKET TOP SCH ×2 (05:14→13:02)
[2020-08-06] MEDS: INSULIN REGULAR, HUMAN 100 UNIT/ML 3 ML VIAL SQ PRN ×2 (06:16→13:07)
[2020-08-06] MEDS: BLOOD SUGAR DIAGNOSTIC 1 EACH STRIP IN SCH ×2 (06:16→13:03)
--- NOTE | 2020-08-06 06:17 | NUR ---
rn notes: complete linen change provided by willy avelar, assisted to bedside commode 5x throughout the night, with a total of 1000 ml of yellow colored urine. sponge bath provided to pt.
[2020-08-06 06:30] LABS: BASOPHILS # (AUTO) 0.1 /CMM (0.0-0.2); BASOPHILS % (AUTO) 0.9 % (0.0-2.0); EOSINOPHILS % (AUTO) 5.7 % (0.0-6.0); HEMATOCRIT 34 % (33-45); HEMOGLOBIN 10.9 g/dL (11.5-14.8); LYMPHOCYTES # (AUTO) 1.8 /CMM (0.8-4.8); LYMPHOCYTES % (AUTO) 30.4 % (20.0-44.0); MEAN CORPUSCULAR HGB CONC 33 g/dl (31.0-36.0); MEAN CORPUSCULAR VOLUME 89 fL (82-100); MONOCYTES # (AUTO) 0.5 /CMM (0.1-1.30); NEUTROPHILS # (AUTO) 3.1 /CMM (1.8-8.9); PLATELET COUNT (AUTO) 216 /CMM (150-450); RED BLOOD CELL COUNT(AUTO) 3.78 MIL/uL (4.0-5.2); WHITE BLOOD COUNT (AUTO) 5.8 K/uL (4.3-11.0)
--- NOTE | 2020-08-06 06:56 | NUR ---
End of shift report: Pt remains on ra, denies any sob, spo2 ranging 93-94%. Remains with moderate pain on right shoulder area, kept offloaded on pillows, offers norco but pt refused, only wants Tylenol. Iv access remains patent and flushing well, on hl, no s/s of iv infiltration noted. Strict i&o performed. Accu check performed as ordered, with insulin coverage given per sliding scale. Plan of care: continue iv diuretics, daily weight, dc planning per md. Safety precautions for fall remains engaged, call light in reach, will endorse to day rn for continuity of care.
[2020-08-06 07:03] LABS: ALBUMIN 2.9 g/dL (3.4-5.0); BILIRUBIN,TOTAL 0.3 mg/dL (0.2-1.0); CALCIUM, SERUM 8.7 mg/dL (8.5-10.1); CREATININE 1.3 mg/dL (0.6-1.3); MAGNESIUM 2.4 mg/dL (1.8-2.4); PHOSPHORUS 4.4 mg/dL (2.5-4.9); POTASSIUM 4.6 mmol/L (3.5-5.1); TOTAL PROTEIN, SERUM 6.4 g/dL (6.4-8.2)
--- NOTE | 2020-08-06 07:30 | NUR ---
MS/RN OPENING NOTE Received patient in bed, A&O x 4, ALGAACIQ on right ear. Denies any pain and discomfort at this time. Breathing even and non-labored on RA, no SOB noted. No cardiac distress noted. IV access noted on R hand #18 g, patent and intact, and flushing well. Sensation from all peripheral extremities intact. Bed locked to its lowest position, side rails x 2 up, call light in reach. Will continue with current medical management.
[2020-08-06 08:52] VITALS: BP 177/76
[2020-08-06] MEDS: INSULIN GLARGINE, 100 UNIT/ML CARTRIDGE SQ SCH (09:00)
[2020-08-06] MEDS: ASPIRIN 81 MG TAB.CHEW PO SCH (09:08)
[2020-08-06] MEDS: FUROSEMIDE 40 MG/4 ML VIAL IV SCH ×3 (09:08→16:28)
[2020-08-06] MEDS: VALSARTAN 80 MG TABLET PO SCH (09:09)
[2020-08-06] MEDS: CHOLECALCIFEROL 1,000 UNIT TABLET (VIT D3) PO SCH (09:09)
--- NOTE | 2020-08-06 16:30 | NUR ---
MS/ROTOR ASSEMBLER NOTE Patient picked up by daughter, Lilian, @ 1630. VSS, afebrile, no SOB noted. All needs are met and attended to. Denies any pain and discomfort throughout shift. Breathing even and non-labored on RA. No respiratory or cardiac distress noted. IV access on R hand #18 removed with catheter intact. Sensation from all peripheral extremities intact. Educated patient and daughter regarding discharge instructions, answered all their questions to their satisfaction. Patient left facility safely with all belongings and hospital documents.
[2020-08-06 16:50] VITALS: BP 160/88
== END 2020-08-06 17:00 | disposition home health service (06) | DRG 291 ==
LOC: ER 15:02 → TELE 19:57 → MED 08-03 11:40
PROVIDERS: ADMIT Legal Medicine; ATTEND Legal Medicine
DX: I13.0 Hypertensive heart and chronic kidney disease with heart failure and stage 1 through stage 4 chronic kidney disease, or unspecified chronic kidney disease (principal); I50.23 Acute on chronic systolic (congestive) heart failure; N17.0 Acute kidney failure with tubular necrosis; E11.22 Type 2 diabetes mellitus with diabetic chronic kidney disease; N18.30 Chronic kidney disease, stage 3 unspecified; E78.5 Hyperlipidemia, unspecified; I25.2 Old myocardial infarction; Z98.890 Other specified postprocedural states; Z88.1 Allergy status to other antibiotic agents; Z88.5 Allergy status to narcotic agent; Z79.4 Long term (current) use of insulin; Z79.51 Long term (current) use of inhaled steroids; Z79.82 Long term (current) use of aspirin; Z79.899 Other long term (current) drug therapy; Z68.35 Body mass index [BMI] 35.0-35.9, adult; I25.10 Atherosclerotic heart disease of native coronary artery without angina pectoris; D64.9 Anemia, unspecified; I35.0 Nonrheumatic aortic (valve) stenosis; M75.100 Unspecified rotator cuff tear or rupture of unspecified shoulder, not specified as traumatic; E66.01 Morbid (severe) obesity due to excess calories; M75.51 Bursitis of right shoulder; Z91.14 Patient's other noncompliance with medication regimen
CPT/HCPCS: 36415; 71045-TC; 73030-TC; 73200-TC; 80048-TC; 80053-TC; 80061-TC; 80076-TC; 82728-TC; 82962-TC; 83540-TC; 83735-TC; 83880; 84100-TC; 84439-TC; 84443-TC; 84484-TC; 85025-TC; 85730-TC; 87081-TC; 93307-TC; 97110-TC; 97112-TC; 97116-TC; 97530-TC; C9803-CS; G0378; J1650; J1815; J1940